=== PATIENT | female | born 1975 | race Caucasian/White ===

== ENCOUNTER 2021-01-06 10:28 | Emergency (ER) | payer BC, OTHER ==
[~2021-01-06] VITALS: Ht 162 cm; Wt 150.0 kg
[2021-01-06] MEDS ORDERED: RX-ALBUTEROL INHALER (VENTOLIN HFA) 8.5 GM IH STA (11:02)
[2021-01-06 11:04] VITALS: BP 166/108
--- NOTE | 2021-01-06 11:14 | ED General ---
General Chief Complaint: Respiratory Problems Stated Complaint: FEVER; VOMITING; SOB O2 87 Source of Information: Patient History of Present Illness Date Seen by Provider: Jan 06, 2021 Time Seen by Provider: 10:31 Initial Comments 45-year-old female presenting with complaints of increased shortness of breath, fever, body aches, cough. She has been exposed to her who was diagnosed with COVID-19 infection on Saturday. She started having symptoms on Saturday night. She does have a history of asthma, hypertension, GERD, prediabetes. She reports having increased cough and shortness of breath and a single episode of vomiting yellow "bile" this morning. She had tried checking her oxygen level at home and states that it was 79%. However this was around the time that she had a fever and she did not do anything other than take Tylenol at that time. She does have albuterol rescue inhalers but has not been using it. She has kept down the 1,000 mg of Acetaminophen she took this am for her fever. She was nervous and worried about her symptoms and not feeling well so her drove her to the ED. She has only lived in [place] for about a month as she just moved here from [place]. She does not have a local provider locally. Timing/Duration: 2-3 Days Severity: Severe Modifying Factors: worse with Movement Associated Systoms: No Chest Pain; Cough; No Diaphoresis; Fever/Chills, Loss of Appetite, Malaise, Nausea/Vomiting (single episode of vomiting this am); No Rash, No Seizure; Shortness of Air; No Syncope; Weakness (general) Allergies and Home Medications Allergies Coded Allergies: torsemide (Verified Allergy, Unknown, Rash, 01/06/21) Home Medications Albuterol Sulfate 18 Gm Hfa.aer.ad, 2 PUFF INH Q4H PRN for SHORTNESS OF BREATH, (Reported) Last Action: New Order Albuterol Sulfate 2.5 Mg/3 Ml Vial.neb, 2.5 MG INH Q4H PRN for WHEEZING Prescribed by: ROSALIND SILVERMAN on 01/06/21 1231 Azithromycin 500 Mg Tablet, 500 MG PO DAILY Prescribed by: ROSALIND SILVERMAN on 01/06/21 1231 Gemfibrozil 600 Mg Tablet, 600 MG PO BID, (Reported) Last Action: New Order Lisinopril/Hydrochlorothiazide 1 Each Tablet, 1 TAB PO DAILY, (Reported) Last Action: New Order Mometasone/Formoterol 13 Gm Hfa.aer.ad, 2 PUFF INH BID, (Reported) Last Action: New Order Montelukast Sodium 10 Mg Tablet, 10 MG PO DAILY, (Reported) Last Action: New Order Pantoprazole Sodium 40 Mg Tablet.dr, 40 MG PO DAILY, (Reported) Last Action: New Order Paroxetine HCl 30 Mg Tablet, 60 MG PO DAILY, (Reported) Last Action: New Order Prednisone 20 Mg Tab, 40 MG PO DAILY Prescribed by: ROSALIND SILVERMAN on 01/06/21 1231 Propranolol HCl 40 Mg Tablet, 40 MG PO BID, (Reported) Last Action: New Order Quetiapine Fumarate 50 Mg Tablet, 50 MG PO DAILY, (Reported) Last Action: New Order Patient Home Medication List Home Medication List Reviewed: Yes Review of Systems Review of Systems Constitutional: chills, fever, malaise EENTM: nose congestion Respiratory: cough, dyspnea on exertion; No hemoptysis; phlegm, short of breath; No stridor; wheezing Cardiovascular: No chest pain Gastrointestinal: see HPI Genitourinary: no symptoms reported Musculoskeletal: other (generalized body aches) Skin: No rash Psychiatric/Neurological: Anxiety Immunological/Allergic: grass allergy, pollen allergy Past Czbojud-Zwrswi-Ckazie Hx Patient Social History Tobacco Use?: No Use of E-Cig and/or Vaping dev: No Substance use?: No Alcohol Use?: No Pt feels they are or have been: No Past Medical History Surgery/Hospitalization HX: Asthma, Depression, Hypertension, Pre-Diabetes, Obesity Surgeries: Yes Gallbladder, Hysterectomy Respiratory: Yes Asthma Cardiac: Yes High Cholesterol, Hypertension 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 oz. kg; BMI Method: General Appearance: Anxious, Obese HEENT: PERRL/EOMI, Pharynx Normal Neck: Full Range of Motion, Normal Inspection, Non Tender, Supple Respiratory: Chest Non Tender, Lungs Clear, Normal Breath Sounds Cardiovascular: Normal Peripheral Pulses, Tachycardia Gastrointestinal: Normal Bowel Sounds, No Pulsatile Mass, Non Tender, Soft Rectal: Deferred Extremity: Normal Capillary Refill, Normal Inspection, Normal Range of Motion, No Pedal Edema Neurologic/Psychiatric: Alert, Oriented x3, drafter (cad) electronic II-XII Norm as Tested Skin: Normal Color, Warm/Dry Focused Exam Lactate Level 01/06/21 11:00: Lactic Acid Level 1.33 Lactic Acid Level Laboratory Tests Test 01/06/21 11:00 Lactic Acid Level 1.33 MMOL/L (0.50-2.00) Progress/Results/Core Measures Suspected Sepsis SIRS Temperature: Pulse: Respiratory Rate: Laboratory Tests 01/06/21 11:00: White Blood Count 5.3 Blood Pressure / Mean: 01/06/21 11:00: Lactic Acid Level 1.33 Laboratory Tests 01/06/21 11:00: Creatinine 0.73, INR Comment 1.0, Platelet Count 216, Total Bilirubin 0.3 Results/Orders Lab Results Laboratory Tests Test 01/06/21 11:00 01/06/21 11:05 Range/Units White Blood Count 5.3 4.3-11.0 10^3/uL Red Blood Count 4.03 L 4.35-5.85 10^6/uL Hemoglobin 11.2 L 11.5-16.0 G/DL Hematocrit 34 L 35-52 % Mean Corpuscular Volume 85 80-99 FL Mean Corpuscular Hemoglobin 28 25-34 PG Mean Corpuscular Hemoglobin Concent 33 32-36 G/DL Red Cell Distribution Width 14.0 10.0-14.5 % Platelet Count 216 130-400 10^3/uL Mean Platelet Volume 10.0 7.4-10.4 FL Immature Granulocyte % (Auto) 0 % Neutrophils (%) (Auto) 79 H 42-75 % Lymphocytes (%) (Auto) 11 L 12-44 % Monocytes (%) (Auto) 10 0-12 % Eosinophils (%) (Auto) 0 0-10 % Basophils (%) (Auto) 0 0-10 % Neutrophils # (Auto) 4.2 1.8-7.8 X 10^3 Lymphocytes # (Auto) 0.6 L 1.0-4.0 X 10^3 Monocytes # (Auto) 0.5 0.0-1.0 X 10^3 Eosinophils # (Auto) 0.0 0.0-0.3 10^3/uL Basophils # (Auto) 0.0 0.0-0.1 10^3/uL Immature Granulocyte # (Auto) 0.0 0.0-0.1 10^3/uL Prothrombin Time 13.8 12.2-14.7 SEC INR Comment 1.0 0.8-1.4 Activated Partial Thromboplast Time 31 24-35 SEC Sodium Level 137 135-145 MMOL/L Potassium Level 3.9 3.6-5.0 MMOL/L Chloride Level 100 98-107 MMOL/L Carbon Dioxide Level 26 21-32 MMOL/L Anion Gap 11 5-14 MMOL/L Blood Urea Nitrogen 13 7-18 MG/DL Creatinine 0.73 0.60-1.30 MG/DL Estimat Glomerular Filtration Rate 87 BUN/Creatinine Ratio 18 Glucose Level 112 H 70-105 MG/DL Lactic Acid Level 1.33 0.50-2.00 MMOL/L Calcium Level 9.1 8.5-10.1 MG/DL Corrected Calcium 9.0 8.5-10.1 MG/DL Total Bilirubin 0.3 0.1-1.0 MG/DL Aspartate Amino Transf (AST/SGOT) 26 5-34 U/L Alanine Aminotransferase (ALT/SGPT) 30 0-55 U/L Alkaline Phosphatase 90 40-136 U/L Troponin I < 0.30 <0.30 NG/ML C-Reactive Protein 1.05 H <0.50 MG/DL Total Protein 7.4 6.4-8.2 GM/DL Albumin 4.1 3.2-4.5 GM/DL SARS-CoV-2 RNA (RT-PCR) Detected H Not Detecte Micro Results Microbiology 01/06/21 Influenza Types A,B Antigen (CRIS) - Final, Complete My Orders Orders - ROSALIND SILVERMAN MD Monitor-Rhythm Ecg Trace Only (01/06/21 11:02) Cbc With Automated Diff (01/06/21 11:02) Comprehensive Metabolic Panel (01/06/21 11:02) Crp Fs (01/06/21 11:02) Troponin I Fs (01/06/21 11:02) Protime With Inr (01/06/21 11:02) Partial Thromboplastin Time (01/06/21 11:02) Ekg Tracing (01/06/21 11:02) Ns Iv 1000 Ml (Sodium Chloride 0.9%) (01/06/21 11:15) Dexamethasone Injection (Decadron Inje (01/06/21 11:02) Rx-Albuterol Inhaler (Rx-Ventolin Hfa) (01/06/21 11:02) Blood Culture (01/06/21 11:04) Lactic Acid Analyzer (01/06/21 11:04) Chest 1 View Ap/Pa Only (01/06/21 11:04) Influenza A And B Antigens (01/06/21 11:04) Ed Iv/Invasive Line Start (01/06/21 11:07) Covid 19 Inhouse Test (01/06/21 11:25) Ketorolac Injection (Toradol Injection) (01/06/21 11:57) Acetaminophen Tablet/Caplet (Tylenol T (01/06/21 11:57) Vital Signs/I&O 01/06/21 01/06/21 11:00 11:04 Temp 37.1 35.9 Pulse 102 115 Resp 16 24 B/P (MAP) 132/72 166/108 (127) Pulse Ox 98 97 O2 Delivery Room Air Room Air Capillary Refill : Progress Note #1: Progress Note check lab, blood cultures with lactic acid, Influenza and Covid swabs, CXR. Give IVF for hydration. UA to check for infection and see about hydration by looking at how concentrated it is. Progress Note #2: Progress Note Labs shows no acute significant abnormality on her CBC. Her lactic acid is normal at 1.3. Her chemistry panel shows elevated CRP consistent with Covid infection but otherwise she has no acute significant normality. She does have a mild elevation of her glucose. Her chest x-ray shows no acute process. Patient reports she was feeling better when reviewing results with her. She has received IV fluids, steroids, albuterol inhaler with spacer. We will continue steroids as well as a Z-Koby at home. Encouraged to use medications for asthma. Counseled on follow-up and return precautions. Advised that influenza was negative but Covid was pending. However considering she had close contact with her who was positive she likely is positive as well. ECG Initial ECG Impression Date: Jan 06, 2021 Initial ECG Impression Time: 11:07 Initial ECG Rate: 109 Initial ECG Rhythm: S.Tach Initial ECG Comparisson: No Previous ECG Available Comment Sinus tachycardia with a heart rate of 109 bpm. FL interval 143 ms. QT interval 350 ms with a QTc interval 472 ms. There is no acute ST elevation. Th ere is no prior tracing available for comparison. Diagnostic Imaging Diagonstic Imaging: Xray Plain Films/CT/US/NM/MRI: chest Comments [facility], [place] NAME: [facility] REC#: [id number] PT STATUS: REG ER : 1975 PHYSICIAN: ROSALIND SILVERMAN MD ADMIT DATE: 01/06/21/ER FS Draft Date of Exam:01/06/21 CHEST 1 VIEW AP/PA ONLY INDICATION: Cough, dyspnea COMPARISON: 07/21/2013 FINDINGS: The lungs are clear. There is no failure, effusion or pneumothorax. IMPRESSION: No acute appearing abnormality. Dictated on workstation # [id number] Dict: 01/06/21 1121 Trans: 01/06/21 1130 [facility] [id number] Interpreted by: ARA LAL Electronically signed by: Reviewed: Reviewed by Me Departure Impression Primary Impression: Close exposure to COVID-19 virus Additional Impressions: Shortness of breath Acute viral syndrome Disposition: 01 HOME, SELF-CARE Condition: Improved Departure-Patient Inst. Decision time for Depature: 12:32 Referrals: NO,LOCAL PHYSICIAN (PCP) Primary Care Physician [facility] Patient Instructions: COVID-19 ED, COVID-19 Overview, How to Use Your Metered Dose Inhaler (Adults), How to Use a Spacer, Recovery After COVID-19 Add. Discharge Instructions: Quarantine and stay isolated to avoid exposure to others for at least next 10 days Use the steroid to help with asthma and shortness of breath. Use albuterol inhaler with spacer and your nebulizer treatments as needed to help with shortness of breath/wheezing. Take the Zithromax antibiotic to help in case there is an atypical bacterial infection. Call [facility] clinic at [phone] to see about establishing care with the clinic. Take plain Mucinex to help with loosening congestion and cough. Make sure to keep drinking plenty of water to help this work and to stay hydrated Take Vitamin C to help your body fight off infection as well. All discharge instructions reviewed with patient and/or family. Voiced understanding. Scripts Albuterol Sulfate (Albuterol Sulfate) 2.5 Mg/3 Ml Vial.neb 2.5 MG INH Q4H PRN for WHEEZING for 15 Days, #75 ML 1 Refill Prov: ROSALIND SILVERMAN MD 01/06/21 Azithromycin (Azithromycin) 500 Mg Tablet 500 MG PO DAILY for 5 Days, #5 TAB 0 Refills Prov: ROSALIND SILVERMAN MD 01/06/21 Prednisone (Prednisone) 20 Mg Tab 40 MG PO DAILY for Shortness of Breath for 5 Days, #10 TAB 0 Refills Prov: ROSALIND SILVERMAN MD 01/06/21 ROSALIND SILVERMAN MD Jan 06, 2021 11:14
[2021-01-06] MEDS ORDERED: NS IV 1000 ML 1,000 ML IV SCH (11:15)
[2021-01-06 11:19] LABS: HEMATOCRIT 34 % (35-52); HEMOGLOBIN 11.2 G/DL (11.5-16.0); MEAN CORPUSCULAR HEMOGLOBIN 28 PG (25-34); WHITE BLOOD COUNT 5.3 10^3/uL (4.3-11.0)
[2021-01-06 11:20] LABS: BASOPHILS % (AUTO) 0 % (0-10); EOSINOPHILS % (AUTO) 0 % (0-10); LYMPHOCYTES # (AUTO) 0.6 X 10^3 (1.0-4.0); LYMPHOCYTES % (AUTO) 11 % (12-44); MEAN CORPUSCULAR HGB CONC 33 G/DL (32-36); MEAN CORPUSCULAR VOLUME 85 FL (80-99); MONOCYTES # (AUTO) 0.5 X 10^3 (0.0-1.0); MONOCYTES % (AUTO) 10 % (0-12); NEUTROPHILS # (AUTO) 4.2 X 10^3 (1.8-7.8); NEUTROPHILS % (AUTO) 79 % (42-75); PLATELET COUNT 216 10^3/uL (130-400)
[2021-01-06] MEDS ORDERED: LISI1TAB26 PO (11:24)
[2021-01-06] MEDS ORDERED: MONT10TA32 PO (11:24)
[2021-01-06] MEDS ORDERED: GEMF600T88 PO (11:24)
[2021-01-06] MEDS ORDERED: MOME13HF INH (11:24)
[2021-01-06] MEDS ORDERED: PANT40TA52 PO (11:24)
[2021-01-06] MEDS ORDERED: PARO30TA3 PO (11:24)
[2021-01-06] MEDS ORDERED: PROP40TA5 PO (11:24)
[2021-01-06] MEDS ORDERED: ALBU18HF2 INH (11:24)
[2021-01-06] MEDS ORDERED: QUET50TA22 PO (11:24)
--- NOTE | 2021-01-06 11:31 | Diagnostic Imaging Report ---
INDICATION: Cough, dyspnea COMPARISON: 07/21/2013 FINDINGS: The lungs are clear. There is no failure, effusion or pneumothorax. IMPRESSION: No acute appearing abnormality. Dictated by: Dictated on workstation # [id number]
[2021-01-06 11:37] LABS: PROTHROMBIN TIME PATIENT 13.8 SEC (12.2-14.7)
[2021-01-06 11:41] LABS: ALKALINE PHOSPHATASE 90 U/L (40-136); BILIRUBIN,TOTAL 0.3 MG/DL (0.1-1.0); BUN/CREATININE RATIO 18; CALCIUM 9.1 MG/DL (8.5-10.1); CARBON DIOXIDE 26 MMOL/L (21-32); CHLORIDE 100 MMOL/L (98-107); CREATININE SERUM 0.73 MG/DL (0.60-1.30); GFR ESTIMATED 87; GLUCOSE 112 MG/DL (70-105); POTASSIUM 3.9 MMOL/L (3.6-5.0); SODIUM 137 MMOL/L (135-145)
[2021-01-06 11:42] LABS: ALANINE AMINOTRANSFERASE 30 U/L (0-55); ALBUMIN 4.1 GM/DL (3.2-4.5); TOTAL PROTEIN 7.4 GM/DL (6.4-8.2)
[2021-01-06] MEDS ORDERED: ACETAMINOPHEN 325 MG TABLET PO STA (11:57)
[2021-01-06] MEDS ORDERED: KETOROLAC 30 MG/ML VIAL IVP STA (11:57)
[2021-01-06] MEDS ORDERED: ALBU2.5V4 INH (12:31)
[2021-01-06] MEDS ORDERED: AZIT500T9 PO (12:31)
[2021-01-06] MEDS ORDERED: PRD20T PO (12:31)
== END 2021-01-06 12:45 | disposition home or self-care (01) ==
LOC: ER FS 10:32
DX: U07.1 COVID-19 (principal); I10 Essential (primary) hypertension; E78.00 Pure hypercholesterolemia, unspecified; F41.9 Anxiety disorder, unspecified; F32.9 Major depressive disorder, single episode, unspecified; K21.9 Gastro-esophageal reflux disease without esophagitis; E66.9 Obesity, unspecified; Z79.899 Other long term (current) drug therapy
CPT/HCPCS: 36415; 71045; 80053; 83605; 84484; 85025; 85610; 85730; 86141; 87040; 87636; 87804; 93005; 93041

== ENCOUNTER 2021-01-08 14:12 | Inpatient (IN) | payer SELFPAY ==
[~2021-01-08] VITALS: Ht 162.5 cm; Wt 171.5 kg
[~2021-01-08 14:12] MED LIST: ALBU18HF2 INH; ALBU2.5V4 INH; AZIT500T9 PO; GEMF600T88 PO; LISI1TAB26 PO; MOME13HF INH; MONT10TA32 PO; PANT40TA52 PO; PARO30TA3 PO; PRD20T PO; PROP40TA5 PO; QUET50TA22 PO
[2021-01-08] MEDS ORDERED: LORazepam INJ 2 MG/ML (ATIVAN) VIAL IVP STA (14:36)
[2021-01-08] MEDS ORDERED: ONDANSETRON 4 MG/2 ML (SDV) Z0FRAN IV ONE (14:45)
[2021-01-08] MEDS ORDERED: NS 100 ML (IVPB) BAG IV ONE (14:45)
[2021-01-08] MEDS ORDERED: CATHETER FLUSH 10 ML SYR IV PRN (14:45)
[2021-01-08] MEDS ORDERED: HOLD METFORMIN - RECEIVED CONTRAST 20 ML VIAL IV SCH (14:45)
[2021-01-08] MEDS ORDERED: NS IV 1000 ML 1,000 ML IV SCH (14:45)
[2021-01-08] MEDS ORDERED: IOHEXOL 350 MG/ML 150 ML (OMNIPAQUE 350) VIAL IV ONE (14:45)
[2021-01-08] MEDS ORDERED: ACETAMINOPHEN 325 MG TABLET PO ONE (14:45)
--- NOTE | 2021-01-08 14:45 | ED General ---
General Chief Complaint: Respiratory Problems Stated Complaint: LOW O2; COVID+ Source of Information: Patient, Old Records History of Present Illness Date Seen by Provider: Jan 08, 2021 Time Seen by Provider: 14:12 Initial Comments 45 yo female presenting with worsening shortness of breath and fever since being seen on Saturday. She was diagnosed with Covid from a swab done on January 06. She has been around her to tested positive earlier in the week. She started feeling bad on night. She does have a history of asthma but has not routinely been using medication. She moved here 1 month ago from [facility]. She had done a pulse ox at home that was reading in the 70s. She states that she had 102.9 fever just prior to arrival in the ED. She did not take any medicine for that and it was 101.2 F tympanic on our testing. She appears very anxious and is hyperventilating with shallow breaths Timing/Duration: 3-4 Days Severity: Severe Modifying Factors: worse with Movement Associated Systoms: Chest Pain (tightness), Cough, Diaphoresis, Fever/Chills, Headaches, Loss of Appetite, Malaise, Nausea/Vomiting; No Seizure; Shortness of Air; No Syncope; Weakness Allergies and Home Medications Allergies Coded Allergies: torsemide (Verified Allergy, Unknown, Rash, 01/06/21) Home Medications Albuterol Sulfate 18 Gm Hfa.aer.ad, 2 PUFF INH Q4H PRN for SHORTNESS OF BREATH, (Reported) Albuterol Sulfate 2.5 Mg/3 Ml Vial.neb, 2.5 MG INH Q4H PRN for WHEEZING Prescribed by: ROSALIND SILVERMAN on 01/06/21 1231 Azithromycin 500 Mg Tablet, 500 MG PO DAILY Prescribed by: ROSALIND SILVERMAN on 01/06/21 1231 Gemfibrozil 600 Mg Tablet, 600 MG PO BID, (Reported) Lisinopril/Hydrochlorothiazide 1 Each Tablet, 1 TAB PO DAILY, (Reported) Mometasone/Formoterol 13 Gm Hfa.aer.ad, 2 PUFF INH BID, (Reported) Montelukast Sodium 10 Mg Tablet, 10 MG PO DAILY, (Reported) Pantoprazole Sodium 40 Mg Tablet.dr, 40 MG PO DAILY, (Reported) Paroxetine HCl 30 Mg Tablet, 60 MG PO DAILY, (Reported) Prednisone 20 Mg Tab, 40 MG PO DAILY Prescribed by: ROSALIND SILVERMAN on 01/06/21 1231 Propranolol HCl 40 Mg Tablet, 40 MG PO BID, (Reported) Quetiapine Fumarate 50 Mg Tablet, 50 MG PO DAILY, (Reported) Patient Home Medication List Home Medication List Reviewed: Yes Review of Systems Review of Systems Constitutional: see HPI EENTM: nose congestion Respiratory: see HPI Cardiovascular: see HPI Gastrointestinal: see HPI Genitourinary: decreased output Musculoskeletal: other (generalized muscle aches and pain) Skin: No rash Psychiatric/Neurological: Anxiety, Headache, Weakness (general) Hematologic/Lymphatic: Denies Blood Clots Immunological/Allergic: grass allergy, pollen allergy Past Nowdbcw-Jeyspd-Urxmdt Hx Patient Social History Tobacco Use?: No Past Medical History Surgery/Hospitalization HX: Asthma, Depression, Hypertension, Pre-Diabetes, Obesity Surgeries: Yes Gallbladder, Hysterectomy Respiratory: Yes Asthma Cardiac: Yes High Cholesterol, Hypertension 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 oz. kg; 57.00 BMI Method: General Appearance: Anxious, Moderate Distress, Obese HEENT: PERRL/EOMI, Pharynx Normal Neck: Full Range of Motion, Normal Inspection, Non Tender, Supple Respiratory: Chest Non Tender, Accessory Muscle Use, Decreased Breath Sounds, Respiratory Distress Cardiovascular: Normal Peripheral Pulses, Tachycardia Gastrointestinal: Normal Bowel Sounds, No Pulsatile Mass, Non Tender, Soft Rectal: Deferred Extremity: Normal Capillary Refill, Normal Inspection, No Pedal Edema Neurologic/Psychiatric: Alert, Oriented x3 Skin: Normal Color, Warm/Dry Focused Exam Lactate Level 01/08/21 14:49: Lactic Acid Level 1.08 Lactic Acid Level Laboratory Tests Test 01/08/21 14:49 Lactic Acid Level 1.08 MMOL/L (0.50-2.00) Progress/Results/Core Measures Suspected Sepsis SIRS Temperature: Pulse: Respiratory Rate: Laboratory Tests 01/08/21 14:49: White Blood Count 8.3 Blood Pressure / Mean: 01/08/21 14:49: Lactic Acid Level 1.08 Laboratory Tests 01/08/21 14:49: Creatinine 0.81, INR Comment 0.9, Platelet Count 229, Total Bilirubin 0.4 Results/Orders Lab Results Laboratory Tests Test 01/08/21 14:49 01/08/21 15:04 Range/Units White Blood Count 8.3 4.3-11.0 10^3/uL Red Blood Count 3.95 L 4.35-5.85 10^6/uL Hemoglobin 11.0 L 11.5-16.0 G/DL Hematocrit 34 L 35-52 % Mean Corpuscular Volume 87 80-99 FL Mean Corpuscular Hemoglobin 28 25-34 PG Mean Corpuscular Hemoglobin Concent 32 32-36 G/DL Red Cell Distribution Width 14.6 H 10.0-14.5 % Platelet Count 229 130-400 10^3/uL Mean Platelet Volume 10.4 7.4-10.4 FL Immature Granulocyte % (Auto) 0 % Neutrophils (%) (Auto) 83 H 42-75 % Lymphocytes (%) (Auto) 11 L 12-44 % Monocytes (%) (Auto) 5 0-12 % Eosinophils (%) (Auto) 0 0-10 % Basophils (%) (Auto) 0 0-10 % Neutrophils # (Auto) 6.9 1.8-7.8 X 10^3 Lymphocytes # (Auto) 0.9 L 1.0-4.0 X 10^3 Monocytes # (Auto) 0.4 0.0-1.0 X 10^3 Eosinophils # (Auto) 0.0 0.0-0.3 10^3/uL Basophils # (Auto) 0.0 0.0-0.1 10^3/uL Immature Granulocyte # (Auto) 0.0 0.0-0.1 10^3/uL Prothrombin Time 12.8 12.2-14.7 SEC INR Comment 0.9 0.8-1.4 Activated Partial Thromboplast Time 34 24-35 SEC Sodium Level 141 135-145 MMOL/L Potassium Level 3.9 3.6-5.0 MMOL/L Chloride Level 102 98-107 MMOL/L Carbon Dioxide Level 27 21-32 MMOL/L Anion Gap 12 5-14 MMOL/L Blood Urea Nitrogen 23 H 7-18 MG/DL Creatinine 0.81 0.60-1.30 MG/DL Estimat Glomerular Filtration Rate 77 BUN/Creatinine Ratio 28 Glucose Level 98 70-105 MG/DL Lactic Acid Level 1.08 0.50-2.00 MMOL/L Calcium Level 8.9 8.5-10.1 MG/DL Corrected Calcium 8.9 8.5-10.1 MG/DL Total Bilirubin 0.4 0.1-1.0 MG/DL Aspartate Amino Transf (AST/SGOT) 28 5-34 U/L Alanine Aminotransferase (ALT/SGPT) 29 0-55 U/L Alkaline Phosphatase 84 40-136 U/L Troponin I < 0.30 <0.30 NG/ML C-Reactive Protein 1.53 H <0.50 MG/DL Pro-B-Type Natriuretic Peptide 171.2 H <75.0 PG/ML Total Protein 7.5 6.4-8.2 GM/DL Albumin 4.0 3.2-4.5 GM/DL Blood Gas Puncture Site UNKNOWN Blood Gas Patient Temperature 101.2 Arterial Blood pH 7.52 H 7.37-7.43 Arterial Blood Partial Pressure CO2 39 35-45 MMHG Arterial Blood Partial Pressure O2 57 L 79-93 MMHG Arterial Blood HCO3 32 H 23-27 MMOL/L Arterial Blood Total CO2 33.0 H 21.0-31.0 MMOL/L Arterial Blood Oxygen Saturation 92 L 94-100 % Arterial Blood Base Excess 8.3 H -2.5-2.5 MMOL/L Mohamud Test NEGATIVE Blood Gas Ventilator Setting NO Blood Gas Inspired Oxygen 4 My Orders Orders - ROSALIND SILVERMAN MD Monitor-Rhythm Ecg Trace Only (01/08/21 14:36) Ed Iv/Invasive Line Start (01/08/21 14:36) Cbc With Automated Diff (01/08/21 14:36) Comprehensive Metabolic Panel (01/08/21 14:36) Crp Fs (01/08/21 14:36) Troponin I Fs (01/08/21 14:36) Protime With Inr (01/08/21 14:36) Partial Thromboplastin Time (01/08/21 14:36) Ekg Tracing (01/08/21 14:36) Arterial Blood Gas (01/08/21 14:36) Ns Iv 1000 Ml (Sodium Chloride 0.9%) (01/08/21 14:45) Acetaminophen Tablet/Caplet (Tylenol T (01/08/21 14:45) Ondansetron Injection (Zofran Injectio (01/08/21 14:45) Ct Angio Chest W (01/08/21 14:36) Probnp Fs (01/08/21 14:36) O2 (01/08/21 14:36) Lorazepam Injection (Ativan Injection) (01/08/21 14:36) Blood Culture (01/08/21 14:42) Lactic Acid Analyzer (01/08/21 14:42) Iohexol Injection (Omnipaque 350 Mg/Ml 1 (01/08/21 14:45) Received Contrast (Hold Metformin- Contr (01/08/21 14:45) Sodium Chloride Flush (Catheter Flush Sy (01/08/21 14:45) Ns (Ivpb) (Sodium Chloride 0.9% Ivpb Bag (01/08/21 14:45) Lorazepam Injection (Ativan Injection) (01/08/21 16:43) Medications Given in ED Current Medications Medications Dose Ordered Sig/Fidelia Route Start Time Stop Time Status Last Admin Dose Admin Acetaminophen 650 mg ONCE ONCE PO 01/08/21 14:45 01/08/21 14:46 DC 01/08/21 16:50 650 MG Iohexol 125 ml ONCE ONCE IV 01/08/21 14:45 01/08/21 14:46 DC 01/08/21 15:38 125 ML Ondansetron HCl 4 mg ONCE ONCE IV 01/08/21 14:45 01/08/21 14:46 DC 01/08/21 16:49 4 MG Sodium Chloride 10 ml NEEDED PRN IV 01/08/21 14:45 01/08/21 15:38 10 ML Sodium Chloride 100 ml ONCE ONCE IV 01/08/21 14:45 01/08/21 14:46 DC 01/08/21 15:38 100 ML Vital Signs/I&O 01/08/21 01/08/21 14:30 14:30 Temp 38.4 Pulse 114 Resp 26 B/P (MAP) 151/98 (115) Pulse Ox 95 95 O2 Delivery Nasal Cannula Nasal Cannula O2 Flow Rate 3.00 3.00 Capillary Refill : Progress Note #1: Progress Note With her hypoxia of O2 sat in the 70s on arrival will place on supplemental oxygen and obtain ABG as well as labs. Since she was having more trouble breathing will order a CT angiogram to rule out pulmonary embolism or worsening Covid symptoms. Give IV fluids for hydration, Ativan to help with anxiety, O2 to help with oxygen. Progress Note #2: Progress Note Labs show stable CBC without elevated white blood cell count. Her chemistry does not show an elevated lactic acid. Her troponin is still 0. Her creatinine looks good at 0.81. Her CRP is elevated. Her blood gas shows alkalosis with elevated pH likely due to her hyperventilating. She does have a low PO2 but only 4 L of supplemental oxygen is 92 to 93%. Discussed with Dr. Stone will admit for Covid and shortness of breath with hypoxia. If her CT scan does show pulmonary embolism or other signs of infection we will treat that and address that as well. Progress Note #3: Progress Note CT angiogram did not demonstrate any pulmonary embolism. Radiology read as moderate amount of COVID-19 findings. Proceed with admission for supplemental oxygen, IV fluids, treatment for Covid. Progress Note #4: Time: 19:11 Progress Note EMS arrived to transport pt to [facility]. She remains stable and O2 sat stays up on n.c. and was able to be weaned to 3 Lpm. ECG Initial ECG Impression Date: Jan 08, 2021 Initial ECG Impression Time: 14:51 Initial ECG Rate: 112 Initial ECG Rhythm: S.Tach Initial ECG Comparisson: Unchanged Comment Sinus tachycardia with heart rate 112 bpm. ME interval [address] elevation. QT interval 331 ms with a QTc interval 452 ms. Appears stable from prior tracing. Diagnostic Imaging Diagonstic Imaging: CT Plain Films/CT/US/NM/MRI: chest Comments NAME: [facility] REC#: [id number] PT STATUS: REG ER : 1975 PHYSICIAN: ROSALIND SILVERMAN MD ADMIT DATE: 01/08/21/ER FS Draft Date of Exam:01/08/21 CT ANGIO CHEST W EXAMINATION: CT angiography of the chest. TECHNIQUE: Contrast enhanced thin section helical images were obtained through the chest with intravenous contrast timed for the optimal opacification of the arterial structures per CTA protocol. Post-processing, reconstructions and interpretation of angiographic images of the vessels was performed. 3D MIP reconstructions were performed and reviewed. All CT scans use one or more of the following dose optimizing techniques: automated exposure control, MA and/or KvP adjustment based on patient size and exam type or iterative reconstruction. HISTORY: Hypoxia, Covid-19. COMPARISON: None available. FINDINGS: Study quality is diminished by body habitus. No pulmonary embolism is seen. There is moderate Covid-19 pneumonia. No pleural effusion. No pneumothorax. There is no axillary or supraclavicular lymphadenopathy. There is no mediastinal lymphadenopathy. Heart size is normal. There are no coronary artery calcifications. No pericardial effusion. Aorta is normal in caliber. Limited views of the upper abdomen are unremarkable. There are no suspicious osseus lesions. IMPRESSION: 1. No pulmonary embolism. 2. Moderate Covid-19 pneumonia. Dictated on workstation # [id number] Dict: 01/08/21 1549 Trans: 01/08/21 1555 [facility] [id number] Interpreted by: JUAN ANTONIO COMER MD Electronically signed by: Departure Communication (Admissions) Time/Spoke to Admitting Phy: 15:43 d/w Dr. Stone for admit and she accepted pt for floor bed since she was maintaining O2 sats above 90% on [address] scan and if shows PE will order medicine for treatment of that as well. Impression Primary Impression: Respiratory tract infection due to 2019 novel coronavirus Additional Impressions: Hypoxia Anxiety Disposition: 30 STILL A PATIENT Condition: Stable Admissions Decision to Admit Reason: Admit from ER (General) Decision to Admit/Date: Jan 08, 2021 Time/Decision to Admit Time: 15:43 Departure-Patient Inst. Referrals: NO,LOCAL PHYSICIAN (PCP/Family) Primary Care Physician ROSALIND SILVERMAN MD Jan 08, 2021 14:45
[2021-01-08 14:53] LABS: HEMATOCRIT 34 % (35-52); MEAN CORPUSCULAR HEMOGLOBIN 28 PG (25-34); MEAN CORPUSCULAR HGB CONC 32 G/DL (32-36); MEAN CORPUSCULAR VOLUME 87 FL (80-99); WHITE BLOOD COUNT 8.3 10^3/uL (4.3-11.0)
[2021-01-08 14:54] LABS: BASOPHILS % (AUTO) 0 % (0-10); EOSINOPHILS % (AUTO) 0 % (0-10); LYMPHOCYTES # (AUTO) 0.9 X 10^3 (1.0-4.0); LYMPHOCYTES % (AUTO) 11 % (12-44); MEAN PLATELET VOLUME 10.4 FL (7.4-10.4); MONOCYTES # (AUTO) 0.4 X 10^3 (0.0-1.0); MONOCYTES % (AUTO) 5 % (0-12); NEUTROPHILS # (AUTO) 6.9 X 10^3 (1.8-7.8); NEUTROPHILS % (AUTO) 83 % (42-75); PLATELET COUNT 229 10^3/uL (130-400)
[2021-01-08 15:04] LABS: ABG PCO2 39 MMHG (35-45); ABG PH 7.52 (7.37-7.43)
[2021-01-08 15:05] LABS: ABG BASE EXCESS 8.3 MMOL/L (-2.5-2.5); ABG OXYGEN SATURATION 92 % (94-100); ABG PO2 57 MMHG (79-93); ALLENS TEST NEGATIVE; INSPIRED O2 4; PATIENT TEMP 101.2; VENTILATOR NO
[2021-01-08 15:09] LABS: INR 0.9 (0.8-1.4); PROTHROMBIN TIME PATIENT 12.8 SEC (12.2-14.7)
[2021-01-08 15:24] LABS: ALANINE AMINOTRANSFERASE 29 U/L (0-55); ALKALINE PHOSPHATASE 84 U/L (40-136); BILIRUBIN,TOTAL 0.4 MG/DL (0.1-1.0); BUN/CREATININE RATIO 28; CALCIUM 8.9 MG/DL (8.5-10.1); CARBON DIOXIDE 27 MMOL/L (21-32); CHLORIDE 102 MMOL/L (98-107); CREATININE SERUM 0.81 MG/DL (0.60-1.30); GFR ESTIMATED 77; GLUCOSE 98 MG/DL (70-105); POTASSIUM 3.9 MMOL/L (3.6-5.0); SODIUM 141 MMOL/L (135-145); TOTAL PROTEIN 7.5 GM/DL (6.4-8.2)
--- NOTE | 2021-01-08 15:56 | Diagnostic Imaging Report ---
EXAMINATION: CT angiography of the chest. TECHNIQUE: Contrast enhanced thin section helical images were obtained through the chest with intravenous contrast timed for the optimal opacification of the arterial structures per CTA protocol. Post-processing, reconstructions and interpretation of angiographic images of the vessels was performed. 3D MIP reconstructions were performed and reviewed. All CT scans use one or more of the following dose optimizing techniques: automated exposure control, MA and/or KvP adjustment based on patient size and exam type or iterative reconstruction. HISTORY: Hypoxia, Covid-19. COMPARISON: None available. FINDINGS: Study quality is diminished by body habitus. No pulmonary embolism is seen. There is moderate Covid-19 pneumonia. No pleural effusion. No pneumothorax. There is no axillary or supraclavicular lymphadenopathy. There is no mediastinal lymphadenopathy. Heart size is normal. There are no coronary artery calcifications. No pericardial effusion. Aorta is normal in caliber. Limited views of the upper abdomen are unremarkable. There are no suspicious osseus lesions. IMPRESSION: 1. No pulmonary embolism. 2. Moderate Covid-19 pneumonia. Dictated by: Dictated on workstation # [id number]
[2021-01-08] MEDS ORDERED: LORazepam INJ 2 MG/ML (ATIVAN) VIAL ONE (16:43)
[2021-01-08] MEDS ORDERED: ONDANSETRON 4 MG/2 ML (SDV) Z0FRAN IV PRN (20:30)
[2021-01-08] MEDS ORDERED: guaiFENesin SYRUP 100 MG/5 ML 10 ML (ROBITUSSIN SF) PO PRN (20:30)
[2021-01-08] MEDS ORDERED: LACTATED RINGERS 1,000 ML IV ONE (20:33)
[2021-01-08 20:39] VITALS: BP 137/82
[2021-01-08] MEDS ORDERED: RT-ALBUTEROL HFA 8.5 GM INHALER IH SCH (21:00)
[2021-01-08] MEDS ORDERED: ALBUTEROL/IPRATROP (COMBIVENT RESPIMAT) 4 GM INHALER INH SCH (21:00)
[2021-01-08] MEDS: LACTATED RINGERS 1,000 ML IV SCH (21:12)
[2021-01-08] MEDS: ENOXAPARIN 60 MG/0.6 ML (LOVENOX) SYR SC SCH (21:19)
[2021-01-08] MEDS: ACETAMINOPHEN 325 MG TABLET PO PRN (21:29)
[2021-01-08 23:30] VITALS: BP 126/82
[2021-01-09] VITALS (17 sets, daily range): BP systolic 98–164; BP diastolic 52–88
[2021-01-09] MEDS: ACETAMINOPHEN 325 MG TABLET PO PRN ×2 (03:14→11:33)
[2021-01-09 06:13] LABS: ALBUMIN 3.7 GM/DL (3.2-4.5); POTASSIUM 3.6 MMOL/L (3.6-5.0)
[2021-01-09 06:14] LABS: CALCIUM 8.7 MG/DL (8.5-10.1)
[2021-01-09 06:15] LABS: TOTAL PROTEIN 7.1 GM/DL (6.4-8.2)
[2021-01-09 06:17] LABS: BILIRUBIN,TOTAL 0.4 MG/DL (0.1-1.0)
[2021-01-09 06:19] LABS: CREATININE SERUM 0.83 MG/DL (0.60-1.30)
[2021-01-09] MEDS: RT-ALBUTEROL HFA 8.5 GM INHALER IH SCH ×5 (08:00→22:03)
[2021-01-09 08:23] LABS: BASOPHILS % (AUTO) 0 % (0-10); EOSINOPHILS % (AUTO) 0 % (0-10); HEMATOCRIT 34 % (35-52); HEMOGLOBIN 10.7 g/dL (11.5-16.0); LYMPHOCYTES # (AUTO) 1.1 10^3/uL (1.0-4.0); LYMPHOCYTES % (AUTO) 17 % (12-44); MEAN CORPUSCULAR HEMOGLOBIN 28 pg (25-34); MEAN CORPUSCULAR HGB CONC 31 g/dL (32-36); MEAN CORPUSCULAR VOLUME 89 fL (80-99); MEAN PLATELET VOLUME 10.7 fL (9.0-12.2); MONOCYTES # (AUTO) 0.3 10^3/uL (0.0-1.0); MONOCYTES % (AUTO) 5 % (0-12); NEUTROPHILS # (AUTO) 4.9 10^3/uL (1.8-7.8); NEUTROPHILS % (AUTO) 78 % (42-75); PLATELET COUNT 228 10^3/uL (130-400); WHITE BLOOD COUNT 6.3 10^3/uL (4.3-11.0)
[2021-01-09] MEDS ORDERED: TOCILIZUMAB INJECTION (NON-FOR 800 MG in NS (IVPB) 60 ML IV ONE (08:30)
[2021-01-09] MEDS ORDERED: dexAMETHasone 6 MG TAB (DECADRON) PO SCH (09:00)
[2021-01-09] MEDS: UMECLIDINIUM BROMIDE (INCRUSE ELLIPTA) 7'S IH SCH (09:56)
[2021-01-09] MEDS ORDERED: [UNRECOGNIZED DRUG - REMARK] IV NR (10:00)
[2021-01-09] MEDS: ENOXAPARIN 60 MG/0.6 ML (LOVENOX) SYR SC SCH ×2 (10:27→19:56)
--- NOTE | 2021-01-09 11:04 | Tele-ICU Consult ---
History of Present Illness History of Present Illness Date Seen by Provider: Jan 09, 2021 Time Seen by Provider: 09:31 Date of Admission Allergies and Home Medications Allergies Coded Allergies: torsemide (Verified Allergy, Unknown, Rash, 01/06/21) Home Medications Albuterol Sulfate 18 Gm Hfa.aer.ad, 2 PUFF INH Q4H PRN for SHORTNESS OF BREATH, (Reported) Albuterol Sulfate 2.5 Mg/3 Ml Vial.neb, 2.5 MG INH Q4H PRN for WHEEZING Prescribed by: ROSALIND SILVERMAN on 01/06/21 1231 Azithromycin 500 Mg Tablet, 500 MG PO DAILY Prescribed by: ROSALIND SILVERMAN on 01/06/21 1231 Gemfibrozil 600 Mg Tablet, 600 MG PO BID, (Reported) Lisinopril/Hydrochlorothiazide 1 Each Tablet, 1 TAB PO DAILY, (Reported) Mometasone/Formoterol 13 Gm Hfa.aer.ad, 2 PUFF INH BID, (Reported) Montelukast Sodium 10 Mg Tablet, 10 MG PO HS, (Reported) Pantoprazole Sodium 40 Mg Tablet.dr, 40 MG PO HS, (Reported) Paroxetine HCl 30 Mg Tablet, 60 MG PO DAILY, (Reported) Prednisone 20 Mg Tab, 40 MG PO DAILY Prescribed by: ROSALIND SILVERMAN on 01/06/21 1231 Propranolol HCl 40 Mg Tablet, 40 MG PO BID, (Reported) Quetiapine Fumarate 50 Mg Tablet, 50 MG PO HS, (Reported) Past Medical/Social/Family Hx Patient Social History Tobacco Use?: No Smoking Status: Never a Smoker Substance use?: No Alcohol Use?: No Pt stated abuse/neglect: No Immunizations Up To Date Influenza Vaccine Up-to-Date: No; Not Current Tetanus Booster (TDap): Less Than 5 Years Hepatitis A: No Hepatitis B: No Current Status status: No status: No Advance Directives: No Communicates: Verbally Primary Language: Russian Preferred Spoken Language: Russian Is interpretation needed?: No Sensory deficits: Vision impairment Review of Systems Constitutional: see HPI Sepsis Event Evaluation Height, Weight, BMI Height: '" Weight: lbs. oz. kg; 56.00 BMI Method: Exam Exam Patient acknowledged, consented, and participated in this virtual visit which was conducted using real time audio/video Vital Signs Date Time Temp Pulse Resp B/P (MAP) Pulse Ox O2 Delivery O2 Flow Rate FiO2 01/09/21 10:16 99 32 90 80.00 01/09/21 08:00 95 NIV Bilevel 65.00 01/09/21 07:00 102 01/09/21 06:45 91 Vapotherm 40.00 100.00 01/09/21 04:45 92 Vapotherm 30.00 90.00 01/09/21 03:27 38.0 98 20 146/83 (104) 89 Nasal Cannula 5.00 01/09/21 02:54 92 Nasal Cannula 5.50 01/09/21 01:00 96 01/08/21 23:30 37.2 97 20 126/82 (97) 91 Nasal Cannula 5.00 01/08/21 23:06 90 Nasal Cannula 6.00 01/08/21 22:46 Nasal Cannula 5.00 01/08/21 21:19 99 01/08/21 20:39 37.9 97 20 137/82 (100) 90 Nasal Cannula 4.00 01/08/21 19:20 37.0 100 25 120/98 93 Nasal Cannula 5.00 01/08/21 14:30 38.4 114 26 151/98 (115) 95 Nasal Cannula 3.00 01/08/21 14:30 95 Nasal Cannula 3.00 I & O 01/09/21 07:00 Intake Total 1400 ml Output Total 900 ml Balance 500 ml Height & Weight Height: '" Weight: lbs. oz. kg; 56.00 BMI Method: General Appearance: Anxious, Mild Distress, Moderate Distress, Obese HEENT: PERRL/EOMI, Pharynx Normal Neck: Full Range of Motion, Normal Inspection, Non Tender, Supple Respiratory: Chest Non Tender, Accessory Muscle Use, Decreased Breath Sounds, Respiratory Distress Cardiovascular: Normal Peripheral Pulses, Tachycardia Capillary Refill: Less Than 3 Seconds Extremity: Normal Capillary Refill, Normal Inspection, No Pedal Edema Neurologic/Psychiatric: Alert, Oriented x3 Skin: Normal Color, Warm/Dry Results Lab Laboratory Tests 01/08/21 14:49 01/09/21 05:50 Assessment/Plan Assessment/Plan (Tele-ICU Physician , consultation) Available chart/ vitals / labs / Images reviewed H&P is from ER notes Patient's information available about PMH, Shx, Fhx allergy reviewed in EMR. ROS as per chart and RN report Patient admitted 7/30 - dx with COVID , Tx with z -max 01/08 - admitted with hypoxia , CTA neg for PE , 3 L NC 01/09 - moved to ICU on Vapothem Now in ICU, hemodynamically stable Video assessment done using teleICU camera, rest of exam as per RN Discussed with RN. Consultants: A/P Acute hypoxic resp failure - on BIPAP18/10 , 70% rr 28, tv 500s MV 16L -prone position if able - prn vapothem for po intake - conservative fluid strategy (aim for even or negative fluid balance REVR-Trqyglingyw-4/COVID-19 infection- ( Dx 01/06 ) - NOT on Remdesivir - outside the Tx window - Actemra 01/09 -Steroids IV - will start with high dose today with asthma / bronchospma in mind - will re-eval tomorrow -Hypercoagulable state , DDIMER on 01/09 =0.6 -> lovenox ppx dose , follow D dimer ( no evidence of large PE on CT 01/08 ) monitor for superimposed bact PNA -PCT pending , OFF abx CT compatable with COVID Cx sputum H/o Asthma - cont br -dilators -IC steroid q 8h today "PRE- Diabetes Mellitus" 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 Discussed with RN to reach out if any questions or concerns Discussed with Dr Stone A total of 40 minutes of critical care time was devoted to this patient today, required to treat and/or prevent further deterioration of critical care condition ( as above ) CHAI RUFFIN MD Jan 09, 2021 11:04
[2021-01-09] MEDS: DexMEDEtomidine 250 ML DRIP 250 ML IV SCH ×2 (11:22→21:28)
[2021-01-09] MEDS: inSUlin ASPART (NovoLOG) 1 UNIT/0.01 ML (CHARGE PER UNIT) SC SCH ×3 (11:30→19:57)
--- NOTE | 2021-01-09 16:13 | History & Physical-Hospitalist ---
History of Present Illness HPI/Chief Complaint Ami Wong is a 45-year-old female with past medical history of asthma, hypertension, hyperlipidemia, GERD, super super obesity, who presented with shortness of breath. Upon my examination, she is wearing BiPAP and is unable to provide the history. She has been having fevers. She started having symptoms a few days ago. She recently tested positive for COVID-19. Her had tested positive before her. She is anxious. She is very worried and tearful about being put on the ventilator. She does agree to intubation if needed though. Date Seen 01/09/21 Time Seen by a Provider: 08:50 Attending Physician Chaya Stone MD PCP No,Local Physician Referring Physician Date of Admission Jan 08, 2021 at 20:05 Home Medications & Allergies Home Medications Reviewed patient Home Medication Reconciliation performed by pharmacy medication reconciliations ammonia refrigeration technician and/or nursing. Patients Allergies have been reviewed. Allergies Allergies Coded Allergies torsemide (Verified Allergy, Unknown, Rash, 01/06/21) Past Zhoikbm-Fewnwh-Rvidlx Hx Patient Social History Marrital Status: Tobacco Use?: No Smoking Status: Never a Smoker Substance use?: No Alcohol Use?: No Pt feels they are or have been: No Immunizations Up To Date Tetanus Booster (TDap): Less Than 5 Years Hepatitis A: No Hepatitis B: No Current Status status: No status: No Advance Directives: No Communicates: Verbally Primary Language: Yakut Preferred Spoken Language: Yakut Is interpretation needed?: No Sensory deficits: Vision impairment Past Medical History Surgeries: Gallbladder, Hysterectomy Asthma 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 oz. kg; 56.00 BMI Method: General Appearance: Moderate Distress (Tachypneic), Obese HEENT: PERRL/EOMI, Pharynx Normal Neck: Normal Inspection, Supple Respiratory: Decreased Breath Sounds, Respiratory Distress (Tachypneic and wearing BiPAP) Cardiovascular: No Edema, No Murmur, Tachycardia Gastrointestinal: Normal Bowel Sounds, Non Tender, Soft Extremity: Normal Inspection, Non Tender, No Pedal Edema Neurologic/Psychiatric: Alert, Oriented x3, No Motor/Sensory Deficits Skin: Normal Color, Warm/Dry Results Results/Procedures Labs Laboratory Tests 01/08/21 14:49 01/09/21 05:50 Patient resulted labs reviewed. Imaging: Reviewed Imaging Report Assessment/Plan Admission Diagnosis Acute respiratory failure due to COVID-19 Admission Status: Inpatient Order (span 2 midnights) Reason for Inpatient Admission: Respiratory failure on BiPAP Assessment and Plan Acute respiratory failure due to COVID-19 Covid+ 01/06 CTA with no evidence of pulmonary embolism, consistent with Covid pneumonia Requiring Vapotherm on arrival, transitioned to BiPAP this morning May require intubation soon Started on Decadron Discussed Actemra risk/benefits/EUA use and patient agrees Decrease dose of Actemra given due to full dose being unavailable TeleICU consulted, appreciate assistance Ddimer mildly elevated, started on prophylactic Lovenox Procalcitonin normal, antibiotics not given HTN Asthma HLD GERD Hold home meds Super super obesity Clinically significant, no acute management needs DVT prophylaxis: Lovenox Critical Care Critically Ill Patient Diagnosis/Problems Diagnosis/Problems (1) Acute respiratory failure due to COVID-19 Status: Acute (2) Super-super obese Status: Chronic (3) Asthma Status: Chronic (4) Hypertension Status: Chronic (5) Hyperlipidemia Status: Chronic (6) GERD (gastroesophageal reflux disease) Status: Chronic TESSA MITCHELL MD Jan 09, 2021 16:12
[2021-01-09] MEDS: LACTATED RINGERS 1,000 ML IV SCH (16:22)
[2021-01-09] MEDS ORDERED: PROPOFOL DRIP (ICU) 0 ML IV ONE (16:55)
[2021-01-09] MEDS ORDERED: FUROSEMIDE 40 MG/4 ML INJ (LASIX) ONE (17:00)
[2021-01-09] MEDS ORDERED: FUROSEMIDE 40 MG/4 ML INJ (LASIX) IVP ONE (17:00)
--- NOTE | 2021-01-09 18:51 | Procedure/Intervention Note ---
Procedures/Interventions Date of ETT Placement: Jan 09, 2021 Time of ETT Placement: 18:47 Intubation Method: orotracheal Tube Size: 7.5 Medications: Etomidate, Rocuronium Positive End Tide CO2: Yes Breath Sounds after Intubation: bilateral-equal Intubation Complications: no complications Post Intubation Xray: Yes Called to ICU to help intubate by data warehouse manager as order was given to intubate by eICU. Patient was 77% on BiPAP upon my arrival. She was given 20 mg of etomidate and 50 mg of rocuronium by me upon arrival. Using the glide scope I was able to visualize the tube passing between the cords 22 cm at the teeth. She did desaturate to 64% during intubation but quickly recovered to 80% on BiPAP at 450 mL tidal volume, 100% FiO2 10 of PEEP. AC mode. CODY GREGG APRN Jan 09, 2021 18:51
[2021-01-09] MEDS ORDERED: ROCURONIUM 10 MG/ML 5 ML SYRINGE IV ONE ×3 (19:00→20:09)
[2021-01-09] MEDS: PROPOFOL DRIP (ICU) 100 ML IV SCH ×3 (19:05→21:24)
--- NOTE | 2021-01-09 19:30 | Consultation - Surgery ---
History of Present Illness History of Present Illness Patient Consulted On(ritiak/time) 01/09/21 19:24 Date Seen by Provider: Jan 09, 2021 Time Seen by Provider: 19:24 History of Present Illness Consult for central line placment, poor venous access. Patient is a 45 year old female with covid with acute respiratory failure. Just intubated. Patient unable to get Picc line placed earlier. Needing central line. Patient unable to provide any information at this time. Allergies and Home Medications Allergies Coded Allergies: torsemide (Verified Allergy, Unknown, Rash, 01/06/21) Home Medications Albuterol Sulfate 18 Gm Hfa.aer.ad, 2 PUFF INH Q4H PRN for SHORTNESS OF BREATH, (Reported) Last Action: Reviewed Albuterol Sulfate 2.5 Mg/3 Ml Vial.neb, 2.5 MG INH Q4H PRN for WHEEZING Prescribed by: ROSALIND SILVERMAN on 01/06/21 1231 Last Action: Reviewed Azithromycin 500 Mg Tablet, 500 MG PO DAILY Prescribed by: ROSALIND SILVERMAN on 01/06/21 1231 Last Action: Reviewed Gemfibrozil 600 Mg Tablet, 600 MG PO BID, (Reported) Last Action: Reviewed Lisinopril/Hydrochlorothiazide 1 Each Tablet, 1 TAB PO DAILY, (Reported) Last Action: Reviewed Mometasone/Formoterol 13 Gm Hfa.aer.ad, 2 PUFF INH BID, (Reported) Last Action: Reviewed Montelukast Sodium 10 Mg Tablet, 10 MG PO HS, (Reported) Last Action: Reviewed Pantoprazole Sodium 40 Mg Tablet.dr, 40 MG PO HS, (Reported) Last Action: Reviewed Paroxetine HCl 30 Mg Tablet, 60 MG PO DAILY, (Reported) Last Action: Reviewed Prednisone 20 Mg Tab, 40 MG PO DAILY Prescribed by: ROSALIND SILVERMAN on 01/06/21 1231 Last Action: Reviewed Propranolol HCl 40 Mg Tablet, 40 MG PO BID, (Reported) Last Action: Reviewed Quetiapine Fumarate 50 Mg Tablet, 50 MG PO HS, (Reported) Last Action: Reviewed Patient Home Medication List Home Medication List Reviewed: Yes Past Zwfvrqs-Bcqanh-Riyrug Hx Patient Social History Smoking Status: Never a Smoker Alcohol Use?: No Have you traveled recently?: No Surgeries History of Surgeries: Yes Surgeries: Gallbladder, Hysterectomy Respiratory History of Respiratory Disorde: Yes Respiratory Disorders: Asthma Cardiovascular History of Cardiac Disorders: Yes Cardiac Disorders: High Cholesterol, Hypertension Neurological History of Neurological Disord: No 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 Genitourinary History of Genitourinary Disor: No Gastrointestinal History of Gastrointestinal Di: Yes Gastrointestinal Disorders: Gastroesophageal Reflux, Gall Bladder Disease Musculoskeletal History of Musculoskeletal Dis: No Endocrine History of Endocrine Disorders: Yes ("Pre-Diabetes") HEENT History of HEENT Disorders: No Cancer History of Cancer: No Psychosocial History of Psychiatric Problem: Yes Behavioral Health Disorders: Anxiety, Depression Reviewed Nursing Assessment Reviewed/Agree w Nursing PMH: Yes Family Medical History Significant Family History: No Pertinent Family Hx Review of Systems-General ROS-Unable to Obtain: Patient unable to provide information intubated. Physical Exam-General Problems Physical Exam Vital Signs Vital Signs - First Documented 01/08/21 01/09/21 14:30 08:00 Temp 38.4 Pulse 114 Resp 26 B/P (MAP) 151/98 (115) Pulse Ox 95 O2 Delivery Nasal Cannula O2 Flow Rate 3.00 FiO2 65 Capillary Refill : Less Than 3 Seconds General Appearance: WD/WN, no apparent distress, obese HEENT: PERRL/EOMI, normal ENT inspection Neck: supple, normal inspection Respiratory: decreased breath sounds, accessory muscle use, other (intubated) Cardiovascular: No JVD; tachycardia Gastrointestinal: soft; No distended Rectal: deferred Neurologic/Psychiatric: No alert (sedated); other (intubated) Skin: normal color, warm/dry Lymphatic: no adenopathy Data Review Labs Laboratory Tests 01/09/21 05:50: White Blood Count 6.3, Red Blood Count 3.85, Hemoglobin 10.7L, Hematocrit 34L, Mean Corpuscular Volume 89, Mean Corpuscular Hemoglobin 28, Mean Corpuscular Hemoglobin Concent 31L, Red Cell Distribution Width 14.9H, Platelet Count 228, Mean Platelet Volume 10.7, Immature Granulocyte % (Auto) 1, Neutrophils (%) (Auto) 78H, Lymphocytes (%) (Auto) 17, Monocytes (%) (Auto) 5, Eosinophils (%) (Auto) 0, Basophils (%) (Auto) 0, Neutrophils # (Auto) 4.9, Lymphocytes # (Auto) 1.1, Monocytes # (Auto) 0.3, Eosinophils # (Auto) 0.0, Basophils # (Auto) 0.0, Immature Granulocyte # (Auto) 0.0, Sodium Level 142, Potassium Level 3.6, Chloride Level 102, Carbon Dioxide Level 27, Anion Gap 13, Blood Urea Nitrogen 21H, Creatinine 0.83, Estimat Glomerular Filtration Rate 75, BUN/Creatinine Ratio 25, Glucose Level 91, Calcium Level 8.7, Corrected Calcium 8.9, Total Bilirubin 0.4, Aspartate Amino Transf (AST/SGOT) 40H, Alanine Aminotransferase (ALT/SGPT) 39, Alkaline Phosphatase 68, C-Reactive Protein High Sensitivity 3.65H, Total Protein 7.1, Albumin 3.7, Procalcitonin 0.11H 01/09/21 10:09: D-Dimer 0.60H 01/09/21 11:29: Glucometer 88 01/09/21 16:15: Glucometer 118H Microbiology 01/08/21 Blood Culture - Preliminary, Resulted No growth Assessment/Plan Assessment/Plan Assessment/Plan covid pneumonia acute respiratory failure requiring intubation poor venous access Intubated. Central line placed left femoral vein Medical management. PROCEDURE: U/S GUIDED LEFT FEMORAL VEIN CENTRAL LINE PLACEMENT- left groin prepped and draped in sterile fashion. U/s used to locate the left femoral vein. The left femoral veing accessed, dark nonpulsatile blood returned. Wire inserted and needle removed. 11 blade used to make skin incision at insertion point. Dilator advance and removed over wire. Triple lumen catheter advanced over wire and wire removed. All port accessed and flushed. Suture catheter in place. Sterile bandage applied. GABBY LOFTON DO Jan 09, 2021 19:30
--- NOTE | 2021-01-09 19:45 | Diagnostic Imaging Report ---
INDICATION: Cough, dyspnea, infiltrate. TECHNIQUE: Single view chest 6:59 PM. CORRELATION STUDY: 01/06/2021 FINDINGS: Interval intubation. Tip projects over the trachea at the level of the clavicles. Gastric tube has also been placed passing below left hemidiaphragm and the left upper quadrant. There has been development of rather extensive patchy bilateral pulmonary opacities throughout both lung dykes, right slightly greater than left. Findings are rather significantly changed from prior chest radiograph. Heart size is obscured but appears to be enlarged. Vasculature also appears to be increased. IMPRESSION: 1. Interval intubation. Placement of gastric tube. 2. Extensive bilateral pulmonary opacities present which have significantly changed from prior study. May very well reflect multilobe pneumonia which would include potential for Covid pneumonia. Given the rapid change, possibility of edema, hemorrhage and/or ARDS is also differential considerations. Dictated by: Dictated on workstation # [id number]
--- NOTE | 2021-01-09 19:46 | Diagnostic Imaging Report ---
INDICATION: TUBE ADJUSTMENT. TECHNIQUE: Single view chest 7:05 PM. CORRELATION STUDY: 01/09/2021 FINDINGS: There has been no appreciable interval change in the position of the endotracheal tube post adjustment. Tip remains projected interposed between the clavicles. Gastric tube tip remains left upper quadrant. Extensive bilateral pulmonary infiltrates are unchanged. IMPRESSION: 1. No appreciable change in follow-up chest radiograph. Endotracheal tube and gastric tube positioning is generally stable. Dictated by: Dictated on workstation # [id number]
[2021-01-09] MEDS ORDERED: ETOMIDATE IV SOLN 20 MG/10 ML VIAL IV ONE (20:09)
[2021-01-09 20:34] LABS: ABG BASE EXCESS 1.9 MMOL/L (-2.5-2.5); ABG OXYGEN SATURATION 91 % (94-100); ABG PCO2 49 MMHG (35-45); ABG PH 7.36 (7.37-7.43); ABG PO2 63 MMHG (79-93); ABG TCO2 28.5 MMOL/L (21.0-31.0)
[2021-01-09 20:37] LABS: ALLENS TEST YES-POS; INSPIRED O2 100%; PATIENT TEMP 36.2; VENTILATOR YES
[2021-01-09] MEDS ORDERED: DexMEDEtomidine 250 ML DRIP 250 ML IV ONE (21:26)
[2021-01-09] MEDS ORDERED: NS IV 1000 ML 1,000 ML ONE (23:08)
[2021-01-10] VITALS (28 sets, daily range): BP systolic 95–146; BP diastolic 49–84
--- NOTE | 2021-01-10 01:15 | Anesthesia-Procedure Note ---
Procedures/Interventions Procedure Start/Stop/Diagnosis Date of Procedure: Jan 09, 2021 Start Time: 23:40 Stop Time: 00:30 Arterial Line Arterial Line Catheter: 20G Type: Radial Location: Left, Right Procedure: prepped, draped in sterile fashion, patient tolerated procedure well, no immediate complications, post procedure area cleaned, post procedure dressing applied Additional Procedures Procedures Multiple Attempts for A-line bilaterally under US visualization. Access obtained x 2 bilaterally, unable to thread catheter due to guide wire bending upon advancement. Attempts were both in an out of plane and in plane techniques. LORENZO JONES CRNA Jan 10, 2021 01:15
[2021-01-10] MEDS: PROPOFOL DRIP (ICU) 100 ML IV SCH ×11 (01:32→20:47)
[2021-01-10] MEDS: DexMEDEtomidine 250 ML DRIP 250 ML IV SCH ×6 (01:33→22:29)
[2021-01-10] MEDS: RT-ALBUTEROL HFA 8.5 GM INHALER IH SCH ×6 (02:21→21:40)
[2021-01-10 04:16] LABS: BASOPHILS % (AUTO) 0 % (0-10); EOSINOPHILS % (AUTO) 0 % (0-10); HEMATOCRIT 35 % (35-52); HEMOGLOBIN 11.5 g/dL (11.5-16.0); LYMPHOCYTES # (AUTO) 0.7 10^3/uL (1.0-4.0); LYMPHOCYTES % (AUTO) 19 % (12-44); MEAN CORPUSCULAR HEMOGLOBIN 29 pg (25-34); MEAN CORPUSCULAR HGB CONC 33 g/dL (32-36); MEAN CORPUSCULAR VOLUME 87 fL (80-99); MEAN PLATELET VOLUME 10.6 fL (9.0-12.2); MONOCYTES # (AUTO) 0.1 10^3/uL (0.0-1.0); MONOCYTES % (AUTO) 3 % (0-12); NEUTROPHILS # (AUTO) 2.9 10^3/uL (1.8-7.8); NEUTROPHILS % (AUTO) 77 % (42-75); PLATELET COUNT 248 10^3/uL (130-400); WHITE BLOOD COUNT 3.8 10^3/uL (4.3-11.0)
[2021-01-10 04:28] LABS: POTASSIUM 4.1 MMOL/L (3.6-5.0)
[2021-01-10 04:30] LABS: CALCIUM 8.8 MG/DL (8.5-10.1)
[2021-01-10 04:34] LABS: CREATININE SERUM 1.12 MG/DL (0.60-1.30)
[2021-01-10 04:36] LABS: MAGNESIUM 2.4 MG/DL (1.6-2.4)
[2021-01-10] MEDS: POTASSIUM CL 10MEQ/50ML IVPB 50 ML IV SCH (05:02)
[2021-01-10] MEDS: MAGNESIUM 1 GM/100 ML IVPB 100 ML IV SCH (05:02)
[2021-01-10] MEDS: KCL 20 MEQ TAB (K-DUR) PO SCH (05:02)
[2021-01-10] MEDS: inSUlin ASPART (NovoLOG) 1 UNIT/0.01 ML (CHARGE PER UNIT) SC SCH ×4 (05:02→20:17)
[2021-01-10 05:40] LABS: ABG BASE EXCESS 2.9 MMOL/L (-2.5-2.5); ABG OXYGEN SATURATION 92 % (94-100); ABG PCO2 35 MMHG (35-45); ABG PH 7.48 (7.37-7.43); ABG PO2 57 MMHG (79-93); ABG TCO2 27.9 MMOL/L (21.0-31.0)
[2021-01-10 05:44] LABS: ALLENS TEST YES-POS; INSPIRED O2 100%; VENTILATOR YES
[2021-01-10 05:45] LABS: PATIENT TEMP 35
--- NOTE | 2021-01-10 06:55 | Occ Therapy Progress Note ---
Therapy Progress Note Orders received. Pt is currently intubated. OT will continue to monitor pt and initiate therapy when pt is more medically stable and able to actively participate in skilled therapy. SONY OLEA Jan 10, 2021 06:55
[2021-01-10] MEDS: UMECLIDINIUM BROMIDE (INCRUSE ELLIPTA) 7'S IH SCH (07:06)
--- NOTE | 2021-01-10 08:00 | Diagnostic Imaging Report ---
INDICATION: Respiratory distress. Comparison made with prior examination of 01/09/2021. FINDINGS: There is diffuse bilateral airspace disease which is unchanged. Some underlying central pulmonary venous congestion cannot be excluded. There is no pneumothorax. ET and NG tubes are in satisfactory position. IMPRESSION: Persistent diffuse bilateral airspace disease. Again some underlying central pulmonary venous congestion cannot be excluded. Dictated by: Dictated on workstation # [id number]
--- NOTE | 2021-01-10 08:37 | Physical Therapy Progress Note ---
Therapy Progress Note Pt is currently intubated. PT will continue to monitor pt and initiate therapy when pt is more medically stable and able to actively participate in skilled therapy. REBEKAH NORIEGA PT Jan 10, 2021 08:37
[2021-01-10] MEDS: ENOXAPARIN 60 MG/0.6 ML (LOVENOX) SYR SC SCH ×2 (08:55→20:46)
[2021-01-10] MEDS: PANTOPRAZOLE 40 MG (PROTONIX) VIAL IV SCH (08:55)
--- NOTE | 2021-01-10 09:56 | Tele-ICU Progress Note ---
Subjective Date Seen by a Provider: Jan 10, 2021 Time Seen by a Provider: 09:56 Sepsis Event Evaluation Height, Weight, BMI Height: '" Weight: lbs. oz. kg; 56.00 BMI Method: Focused Exam Lactate Level 01/08/21 14:49: Lactic Acid Level 1.08 Exam Exam Patient acknowledged, consented, and participated in this virtual visit which wa s conducted using real time audio/video Vital Signs Date Time Temp Pulse Resp B/P (MAP) Pulse Ox O2 Delivery O2 Flow Rate FiO2 01/10/21 09:36 133/72 01/10/21 09:35 133/72 01/10/21 09:35 133/72 01/10/21 07:30 37.0 01/10/21 07:07 64 24 84 100 01/10/21 07:00 64 01/10/21 06:08 66 144/82 01/10/21 06:07 66 144/82 01/10/21 06:00 65 22 146/82 (103) 86 Mechanical Ventilator 100.00 01/10/21 05:18 64 140/86 01/10/21 05:00 64 24 139/81 (100) 89 Mechanical Ventilator 100.00 01/10/21 04:00 65 29 115/65 (82) 84 Mechanical Ventilator 100.00 01/10/21 03:00 66 17 138/75 (96) 89 Mechanical Ventilator 100.00 01/10/21 02:21 65 28 88 100 01/10/21 02:00 66 26 136/82 (100) 89 Mechanical Ventilator 100.00 01/10/21 01:33 66 129/77 01/10/21 01:33 66 129/77 01/10/21 01:32 66 129/77 01/10/21 01:00 66 01/10/21 01:00 66 26 129/78 (95) 89 Mechanical Ventilator 100.00 01/10/21 00:00 67 24 127/75 (92) 88 Mechanical Ventilator 100.00 01/10/21 00:00 89 Mechanical Ventilator 100 01/09/21 23:00 68 24 117/73 (88) 88 Mechanical Ventilator 100.00 01/09/21 22:04 64 24 91 100 01/09/21 22:00 64 24 109/66 (80) 91 Mechanical Ventilator 100.00 01/09/21 21:28 64 115/73 01/09/21 21:24 65 118/72 01/09/21 21:23 64 118/72 01/09/21 21:00 64 24 115/73 (87) 90 Mechanical Ventilator 100.00 01/09/21 20:00 66 24 115/73 (87) 87 Mechanical Ventilator 100.00 01/09/21 20:00 89 Mechanical Ventilator 100 01/09/21 19:30 68 24 85 100 01/09/21 19:05 83 171/117 01/09/21 19:00 81 24 112/62 (79) 80 Mechanical Ventilator 100.00 01/09/21 19:00 90 01/09/21 18:45 100 01/09/21 18:00 74 16 164/88 (113) 82 NIV Bilevel 100.00 01/09/21 17:21 NIV Bilevel 100.00 01/09/21 17:00 106 18 106/59 (75) 85 NIV Bilevel 100.00 01/09/21 16:17 36.6 01/09/21 16:00 90 35 112/59 (76) 87 NIV Bilevel 100.00 01/09/21 15:00 77 26 116/52 (73) 87 NIV Bilevel 100.00 01/09/21 14:00 94 18 116/61 (79) 88 NIV Bilevel 100.00 01/09/21 13:56 98 36 87 100.00 01/09/21 13:00 92 20 91 NIV Bilevel 70.00 01/09/21 13:00 88 01/09/21 12:00 105 38 90 NIV Bilevel 70.00 01/09/21 11:29 38.7 01/09/21 11:22 101 141/81 01/09/21 11:00 108 37 141/81 (101) 91 NIV Bilevel 70.00 01/09/21 10:16 99 32 90 80.00 01/09/21 10:00 107 10 98/74 (82) 90 NIV Bilevel 70.00 I & O 01/10/21 07:00 Intake Total 2400 ml Output Total 1700 ml Balance 700 ml Height & Weight Height: '" Weight: lbs. oz. kg; 56.00 BMI Method: General Appearance: Moderate Distress (Tachypneic), Obese HEENT: PERRL/EOMI, Pharynx Normal Neck: Normal Inspection, Supple Respiratory: Decreased Breath Sounds, Respiratory Distress (Tachypneic and wearing BiPAP) Cardiovascular: No Edema, No Murmur, Tachycardia Capillary Refill: Less Than 3 Seconds Gastrointestinal: soft; No distended Extremity: Normal Inspection, Non Tender, No Pedal Edema Neurologic/Psychiatric: Alert, Oriented x3, No Motor/Sensory Deficits Skin: Normal Color, Warm/Dry Results Lab Laboratory Tests 01/08/21 14:49 01/09/21 05:50 01/10/21 03:40 Assessment/Plan Assessment/Plan (Tele-ICU Physician , Progress Note ) Available chart/ vitals / labs / Images reviewed Video assessment done using teleICU camera, rest of exam as per RN Discussed with RN Events overnight : intubated FEBRILE 37 I/O = even Drips: Pressors: , hemodynamically stable Sedation gtt: propofol 50 precedex 1.5 ( RASS ) EXAM PER RN Consultants: Hospital course: Patient admitted 01/06 - dx with COVID , Tx with z -max 01/08 - admitted with hypoxia , CTA neg for PE , 3 L NC 01/09 - moved to ICU on Vapothem 01/09 - intubated - 100 peep 16, line placed LEFT FEM 01/10 increased peep 20 Now in ICU, hemodynamically stable Video assessment done using teleICU camera, rest of exam as per RN Discussed with RN. Consultants: A/P Acute hypoxic resp failure - on AC rr 24, 360 - +16 . 100 % --> will dercere rr to 16 and increase peep to 20 (PAP30s -prone position to try today - conservative fluid strategy (aim for even MBEA-Bicclnzbyor-2/COVID-19 infection ( Dx 01/06 ) - NOT on Remdesivir - outside the Tx window - Actemra 01/09 -Steroids IV - started with high dose with asthma / bronchospma in mind -> with low PAP will decrease to 10 day today decadron -Hypercoagulable state , DDIMER on 01/09 and 01/10 is low =0.6 -> lovenox ppx dose ( no evidence of large PE on CT 01/08 ) monitor for superimposed bact PNA -PCT low , OFF abx - S/P ACTEMRA CT compatable with COVID Cx sputum pending UA 01/10 pending H/o Asthma - cont br -dilators -IC steroid q 8h today "PRE- Diabetes Mellitus" 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 Discussed with RN to reach out if any questions or concerns Discussed with Dr Mcgraw A total of 40 minutes of critical care time was devoted to this patient today, required to treat and/or prevent further deterioration of critical care condition ( as above ) CHAI RUFFIN MD Jan 10, 2021 09:56
[2021-01-10] MEDS ORDERED: fentaNYL INJ 100 MCG/2 ML AMP IVP PRN (10:00)
[2021-01-10 10:01] LABS: CLARITY,URINE CLOUDY; COLOR,URINE YELLOW; GLUCOSE, URINE (UA) NEGATIVE (NEGATIVE); KETONES,URINE NEGATIVE (NEGATIVE); LEUKOCYTE ESTERASE ,URINE NEGATIVE (NEGATIVE); NITRITE,URINE NEGATIVE (NEGATIVE); PH,URINE 5.5 (5-9); PROTEIN,URINE 1+ (NEGATIVE)
[2021-01-10] MEDS ORDERED: ROCURONIUM 10 MG/ML 5 ML SYRINGE IV ONE ×2 (10:07→10:08)
[2021-01-10] MEDS ORDERED: LACTATED RINGERS 1,000 ML IV ONE (10:09)
[2021-01-10 10:11] LABS: AMORPHOUS SEDIMENT,UR LARGE AMOR URATES /LPF; BACTERIA,URINE NEGATIVE /HPF; BILIRUBIN,URINE 1+ (NEGATIVE); URIC ACID CRYSTALS,URINE LARGE /LPF
[2021-01-10] MEDS: ROCURONIUM 10 MG/ML 5 ML SYRINGE IV PRN ×2 (10:15→14:15)
[2021-01-10] MEDS: LACTATED RINGERS 1,000 ML IV SCH (10:47)
--- NOTE | 2021-01-10 18:27 | Progress Note - Hospitalist ---
Subjective HPI/CC On Admission Date Seen by Provider: Jan 10, 2021 Time Seen by Provider: 09:40 Ami Wong is a 45-year-old female with past medical history of asthma, hypertension, hyperlipidemia, GERD, super super obesity, who presented with shortness of breath. Upon my examination, she is wearing BiPAP and is unable to provide the history. She has been having fevers. She started having symptoms a few days ago. She recently tested positive for COVID-19. Her had tested positive before her. She is anxious. She is very worried and tearful about being put on the ventilator. She does agree to intubation if needed though. Subjective/Events-last exam She is intubated and sedated. I spoke with her on the phone regarding her severe illness and poor prognosis. We discussed that her oxygen levels have been low despite maximal ventilator support. We discussed the futility of CPR if she was to have a cardiac arrest and he was in agreement to transitioning to DNR. We discussed the plan to begin paralytics and proning. He expressed understanding and was grateful for the update. Focused Exam Lactate Level 01/08/21 14:49: Lactic Acid Level 1.08 Objective Exam Vital Signs Vital Signs Date Time Temp Pulse Resp B/P (MAP) Pulse Ox O2 Delivery O2 Flow Rate FiO2 01/10/21 17:00 63 13 120/62 (81) 98 Mechanical Ventilator 100.00 01/10/21 16:25 35.7 01/10/21 14:21 100 Capillary Refill : Less Than 3 Seconds General Appearance: No Apparent Distress, Obese, Other (intubated and sedated) Respiratory: Decreased Breath Sounds, Other (intubated and mechanically ventilated) Cardiovascular: Regular Rate, Rhythm, No Murmur Gastrointestinal: Normal Bowel Sounds, Soft Extremity: Normal Inspection, Non Tender, Pedal Edema Neurologic/Psychiatric: Other (sedated) Skin: Normal Color, Warm/Dry Results/Procedures Lab Laboratory Tests 01/10/21 03:40 Patient resulted labs reviewed. Imaging: Reviewed Imaging Report Assessment/Plan Assessment and Plan Assess & Plan/Chief Complaint Acute respiratory distress syndrome due to COVID-19 Endotracheally intubated Asthma Covid+ 01/06 CTA with no evidence of pulmonary embolism, consistent with Covid pneumonia Intubated 01/09, requiring high FiO2 and PEEP Attempt proning Begin paralytics Continue Decadron s/p Actemra, decreased dose of Actemra given due to full dose being unavail able TeleICU consulted, appreciate assistance Ddimer mildly elevated, started on prophylactic Lovenox Procalcitonin normal, antibiotics not given HTN Asthma HLD GERD Hold home meds Super super obesity Clinically significant, no acute management needs DVT prophylaxis: Lovenox Critical Care Critically Ill Patient Diagnosis/Problems Diagnosis/Problems (1) Acute respiratory distress syndrome (ARDS) due to COVID-19 virus Status: Acute (2) Endotracheally intubated Status: Acute (3) Acute respiratory failure due to COVID-19 Status: Acute (4) Super-super obese Status: Chronic (5) Asthma Status: Chronic (6) Hypertension Status: Chronic (7) Hyperlipidemia Status: Chronic (8) GERD (gastroesophageal reflux disease) Status: Chronic TESSA MITCHELL MD Jan 10, 2021 18:27
[2021-01-11] VITALS (31 sets, daily range): BP systolic 98–157; BP diastolic 46–96
[2021-01-11] MEDS: PROPOFOL DRIP (ICU) 100 ML IV SCH ×8 (00:19→21:41)
[2021-01-11] MEDS: RT-ALBUTEROL HFA 8.5 GM INHALER IH SCH ×6 (01:55→21:55)
[2021-01-11] MEDS: DexMEDEtomidine 250 ML DRIP 250 ML IV SCH ×6 (02:25→22:32)
[2021-01-11 02:41] LABS: ABG BASE EXCESS 2.4 MMOL/L (-2.5-2.5); ABG OXYGEN SATURATION 92 % (94-100); ABG PCO2 48 MMHG (35-45); ABG PH 7.37 (7.37-7.43); ABG PO2 67 MMHG (79-93); ABG TCO2 28.8 MMOL/L (21.0-31.0)
[2021-01-11 02:42] LABS: ALLENS TEST YES-POS; INSPIRED O2 100%; PATIENT TEMP 36.6; VENTILATOR YES
[2021-01-11 02:52] LABS: ALBUMIN 3.4 GM/DL (3.2-4.5); POTASSIUM 4.2 MMOL/L (3.6-5.0)
[2021-01-11] MEDS: ROCURONIUM 10 MG/ML 5 ML SYRINGE IV PRN (02:52)
[2021-01-11 02:53] LABS: CALCIUM 8.5 MG/DL (8.5-10.1)
[2021-01-11 02:55] LABS: TOTAL PROTEIN 7.6 GM/DL (6.4-8.2)
[2021-01-11 02:56] LABS: BILIRUBIN,TOTAL 0.5 MG/DL (0.1-1.0)
[2021-01-11 02:58] LABS: CREATININE SERUM 1.08 MG/DL (0.60-1.30); PHOSPHORUS 2.9 MG/DL (2.3-4.7)
[2021-01-11 03:01] LABS: MAGNESIUM 2.5 MG/DL (1.6-2.4)
[2021-01-11 03:06] LABS: BASOPHILS % (AUTO) 0 % (0-10); EOSINOPHILS % (AUTO) 0 % (0-10); HEMATOCRIT 35 % (35-52); HEMOGLOBIN 11.4 g/dL (11.5-16.0); LYMPHOCYTES % (AUTO) 19 % (12-44); MEAN CORPUSCULAR HEMOGLOBIN 29 pg (25-34); MEAN CORPUSCULAR HGB CONC 33 g/dL (32-36); MEAN CORPUSCULAR VOLUME 88 fL (80-99); MEAN PLATELET VOLUME 10.6 fL (9.0-12.2); MONOCYTES # (AUTO) 0.2 10^3/uL (0.0-1.0); MONOCYTES % (AUTO) 4 % (0-12); NEUTROPHILS # (AUTO) 4.1 10^3/uL (1.8-7.8); NEUTROPHILS % (AUTO) 77 % (42-75); PLATELET COUNT 246 10^3/uL (130-400); WHITE BLOOD COUNT 5.4 10^3/uL (4.3-11.0)
[2021-01-11] MEDS: inSUlin ASPART (NovoLOG) 1 UNIT/0.01 ML (CHARGE PER UNIT) SC SCH ×2 (04:29→11:44)
[2021-01-11] MEDS: MAGNESIUM 1 GM/100 ML IVPB 100 ML IV SCH (05:40)
[2021-01-11] MEDS: POTASSIUM CL 10MEQ/50ML IVPB 50 ML IV SCH (05:40)
[2021-01-11] MEDS: KCL 20 MEQ TAB (K-DUR) PO SCH (05:41)
[2021-01-11] MEDS: LACTATED RINGERS 1,000 ML IV SCH (05:57)
--- NOTE | 2021-01-11 06:45 | Diagnostic Imaging Report ---
INDICATION: Respiratory distress. Comparison with 01/10/2021. FINDINGS: NG tube remain in good position. ET tube has been partially withdrawn, now tip is at the level of C7. There continues to be cardiomegaly. There had been slight clearing of the left lung. Rather dense infiltrate remains throughout the right lung and left lung base. IMPRESSION: 1. ET tube has been partially withdrawn, tip is now at level of C7. Would consider advancing ET tube. 2. Persistent right lung infiltrate with some clearing noted on the left. Dictated by: Dictated on workstation # [id number]
--- NOTE | 2021-01-11 06:58 | Occ Therapy Progress Note ---
Therapy Progress Note Pt is currently intubated. OT will continue to monitor pt and initiate therapy when pt is more medically stable and able to actively participate in skilled therapy. SONY OLEA Jan 11, 2021 06:58
--- NOTE | 2021-01-11 07:53 | Physical Therapy Progress Note ---
Therapy Progress Note Pt is currently intubated. PT will continue to monitor pt and initiate therapy when pt is more medically stable and able to actively participate in skilled therapy. CELI ASHTON PT Jan 11, 2021 07:53
[2021-01-11] MEDS: CISATRACURIUM INJECTION 100 MG in NS (IVPB) 200 ML IV SCH ×7 (08:30→22:32)
[2021-01-11] MEDS: ENOXAPARIN 60 MG/0.6 ML (LOVENOX) SYR SC SCH ×2 (09:13→19:50)
[2021-01-11] MEDS: PANTOPRAZOLE 40 MG (PROTONIX) VIAL IV SCH (09:13)
--- NOTE | 2021-01-11 09:29 | Tele-ICU Progress Note ---
Subjective Date Seen by a Provider: Jan 11, 2021 Time Seen by a Provider: 10:30 Subjective/Events-last exam Intubated for COVID PNA, Now on AC 16 Vt 400 FiO2 100%, PEEP 24 ABG 7.37/48/67 CXR shows increased HS and extensive infiltrates, pt is morbidly obese D dimer 0.4 on Lovenox 60 bid Started on Propofol 16, Precedex 1.5, also on Nimbex 0.3 Not on Remdesivir, outside window Received Actrema on 01/09 Pt is DNR, Has poor UO but has improved Sepsis Event Evaluation Height, Weight, BMI Height: '" Weight: lbs. oz. kg; 56.00 BMI Method: Focused Exam Lactate Level 01/08/21 14:49: Lactic Acid Level 1.08 Exam Exam Patient acknowledged, consented, and participated in this virtual visit which was conducted using real time audio/video Vital Signs Date Time Temp Pulse Resp B/P (MAP) Pulse Ox O2 Delivery O2 Flow Rate FiO2 01/11/21 09:14 61 140/73 01/11/21 09:13 61 140/73 01/11/21 08:00 36.0 01/11/21 06:38 61 25 86 100 01/11/21 06:03 62 130/68 01/11/21 06:03 62 130/68 01/11/21 06:03 62 130/68 01/11/21 06:00 62 21 130/68 (88) 87 Mechanical Ventilator 100.00 01/11/21 05:00 73 16 145/74 (97) 92 Mechanical Ventilator 100.00 01/11/21 04:00 97 Mechanical Ventilator 100 01/11/21 04:00 64 19 130/70 (90) 97 Mechanical Ventilator 100.00 01/11/21 03:07 63 110/66 01/11/21 03:07 63 110/66 01/11/21 03:00 64 19 110/66 (81) Mechanical Ventilator 100.00 01/11/21 02:25 64 100/46 01/11/21 02:00 64 20 98/55 (62) 93 Mechanical Ventilator 100.00 01/11/21 01:55 64 26 96 100 01/11/21 01:00 64 16 114/61 (81) 94 Mechanical Ventilator 100.00 01/11/21 01:00 64 01/11/21 00:19 63 103/49 01/11/21 00:19 63 103/49 01/11/21 00:00 65 18 109/49 (62) 95 Mechanical Ventilator 100.00 01/11/21 00:00 97 Mechanical Ventilator 100 01/10/21 23:00 65 19 110/59 (74) 95 Mechanical Ventilator 100.00 01/10/21 22:29 64 115/58 01/10/21 22:00 63 18 106/67 (80) 99 Mechanical Ventilator 100.00 01/10/21 21:41 64 24 97 100 01/10/21 21:00 62 16 129/59 (82) 99 Mechanical Ventilator 100.00 01/10/21 20:47 63 127/62 01/10/21 20:47 64 127/62 01/10/21 20:00 97 Mechanical Ventilator 100 01/10/21 20:00 36.2 01/10/21 20:00 62 16 118/65 (82) 98 Mechanical Ventilator 100.00 01/10/21 19:00 60 15 119/56 (77) 98 Mechanical Ventilator 100.00 01/10/21 19:00 60 01/10/21 18:29 113/67 01/10/21 18:28 113/67 01/10/21 18:27 113/67 01/10/21 18:14 62 24 96 100 01/10/21 18:00 66 21 113/67 (82) 92 Mechanical Ventilator 100.00 01/10/21 17:00 63 13 120/62 (81) 98 Mechanical Ventilator 100.00 01/10/21 16:25 35.7 Mechanical Ventilator 100.00 01/10/21 16:20 Mechanical Ventilator 100 01/10/21 16:00 65 13 100/57 (71) 96 Mechanical Ventilator 100.00 01/10/21 15:00 64 16 102/51 (68) 94 Mechanical Ventilator 100.00 01/10/21 14:21 61 16 86 100 01/10/21 14:14 105/60 01/10/21 14:13 105/60 01/10/21 14:13 105/60 01/10/21 14:00 63 21 98/56 (70) 86 Mechanical Ventilator 100.00 01/10/21 13:00 62 01/10/21 13:00 62 15 111/60 (77) 93 Mechanical Ventilator 100.00 01/10/21 12:20 93 Mechanical Ventilator 100 01/10/21 12:00 65 16 99/54 (69) 93 Mechanical Ventilator 100.00 01/10/21 11:35 36.2 01/10/21 11:00 64 16 98/55 (69) 93 Mechanical Ventilator 100.00 01/10/21 10:35 66 16 88 100 01/10/21 10:00 68 31 95/49 (64) 78 Mechanical Ventilator 100.00 01/10/21 09:36 133/72 01/10/21 09:35 133/72 01/10/21 09:35 133/72 I & O 01/11/21 06:59 Intake Total 2550 ml Output Total 850 ml Balance 1700 ml Height & Weight Height: '" Weight: lbs. oz. kg; 56.00 BMI Method: General Appearance: No Apparent Distress, Obese, Other (intubated and sedated) HEENT: PERRL/EOMI, Pharynx Normal Neck: Normal Inspection, Supple Respiratory: Decreased Breath Sounds, Rhonci, Other (intubated and mechanically ventilated) Cardiovascular: Regular Rate, Rhythm, No Murmur Capillary Refill: Less Than 3 Seconds Gastrointestinal: normal bowel sounds, non tender, soft; No distended Extremity: Normal Inspection, Non Tender, No Pedal Edema, Pedal Edema, Other (Right PICC, site looks ok) Neurologic/Psychiatric: Other (sedated) Skin: Normal Color, Warm/Dry Results Lab Laboratory Tests 01/10/21 03:40 01/11/21 02:20 Assessment/Plan Assessment/Plan COVID PNA, will leave sedated on vent continue above meds, micro shows normal resp sara Acute hypoxic resp failure - on AC 16, 400 - +24 . 100 % --> -prone position to try today - conservative fluid strategy (aim for even [id number]/COVID-19 infection ( Dx 01/06 ) - NOT on Remdesivir - outside the Tx window - Actemra 01/09 -Steroids IV - started with high dose with asthma / bronchospma in mind -> with low PAP will decrease to 10 day today decadron -Hypercoagulable state , DDIMER on 01/09 and 01/10 is low =0.6 -> lovenox ppx dose ( no evidence of large PE on CT 01/08 ) monitor for superimposed bact PNA -PCT low , OFF abx - S/P ACTEMRA CT compatable with COVID Cx sputum pending UA 01/10 pending H/o Asthma - cont br -dilators -IC steroid q 8h today "PRE- Diabetes Mellitus" [employer] - ISS , close f/up on steroids GERD - PPI will start TF today Lines : 01/10 RIGHT single PICC (Central Line Necessity Reviewed) [place]: OG: Nutrition: try Po id tolerates Analgesia: ma Anxiety/ delirium na VTE Prophylaxis: lovenox proph Stress Ulcer Prophylaxis: PPI Glycemic Control: Critical Care: Critically Ill Patient Time spent with patient (mins): 25 MALACHI KRUGER MD Jan 11, 2021 09:29
[2021-01-11] MEDS: UMECLIDINIUM BROMIDE (INCRUSE ELLIPTA) 7'S IH SCH (10:38)
[2021-01-11] MEDS: inSUlin ASPART (NovoLOG) 1 UNIT/0.01 ML (CHARGE PER UNIT) SQ SCH ×3 (11:43→23:43)
--- NOTE | 2021-01-11 12:03 | Progress Note - Hospitalist ---
Subjective HPI/CC On Admission Date Seen by Provider: Jan 11, 2021 Time Seen by Provider: 09:40 Ami Wong is a 45-year-old female with past medical history of asthma, hypertension, hyperlipidemia, GERD, super super obesity, who presented with shortness of breath. Upon my examination, she is wearing BiPAP and is unable to provide the history. She has been having fevers. She started having symptoms a few days ago. She recently tested positive for COVID-19. Her had tested positive before her. She is anxious. She is very worried and tearful about being put on the ventilator. She does agree to intubation if needed though. Subjective/Events-last exam She remains intubated and sedated. Focused Exam Lactate Level 01/08/21 14:49: Lactic Acid Level 1.08 Objective Exam Vital Signs Vital Signs Date Time Temp Pulse Resp B/P (MAP) Pulse Ox O2 Delivery O2 Flow Rate FiO2 01/11/21 11:24 35.9 01/11/21 11:00 69 144/70 01/11/21 10:38 16 99 100 01/11/21 10:00 Mechanical Ventilator 100.00 Capillary Refill : Less Than 3 Seconds General Appearance: No Apparent Distress, Obese, Other (Intubated and sedated) Respiratory: No Respiratory Distress, Decreased Breath Sounds, Other (intubated and mechanically ventilated) Cardiovascular: Regular Rate, Rhythm, No Edema, No Murmur Gastrointestinal: Normal Bowel Sounds, Soft Extremity: Normal Inspection, No Pedal Edema Neurologic/Psychiatric: Other (Sedated and paralyzed) Skin: Normal Color, Warm/Dry Results/Procedures Lab Laboratory Tests 01/11/21 02:20 Patient resulted labs reviewed. Imaging: Reviewed Imaging Report Assessment/Plan Assessment and Plan Assess & Plan/Chief Complaint Acute respiratory distress syndrome due to COVID-19 Endotracheally intubated Asthma Covid+ 01/06 CTA with no evidence of pulmonary embolism, consistent with Covid pneumonia Intubated 01/09, requiring high FiO2 and PEEP, oxygenation improved this morning Continue proning Continue paralytics Continue Decadron s/p Actemra, decreased dose of Actemra given due to full dose being unavailable TeleICU consulted, appreciate assistance Ddimer mildly elevated, started on prophylactic Lovenox Procalcitonin normal, antibiotics not given BNP normal, hold off on diuretics Begin tube feeds HTN Asthma HLD GERD Hold home meds Super super obesity Clinically significant, no acute management needs DVT prophylaxis: Lovenox Critical Care Critically Ill Patient Diagnosis/Problems Diagnosis/Problems (1) Acute respiratory distress syndrome (ARDS) due to COVID-19 virus Status: Acute (2) Endotracheally intubated Status: Acute (3) Acute respiratory failure due to COVID-19 Status: Acute (4) Super-super obese Status: Chronic (5) Asthma Status: Chronic (6) Hypertension Status: Chronic (7) Hyperlipidemia Status: Chronic (8) GERD (gastroesophageal reflux disease) Status: Chronic TESSA MITCHELL MD Jan 11, 2021 12:03
[2021-01-12] VITALS (30 sets, daily range): BP systolic 82–166; BP diastolic 30–76
[2021-01-12] MEDS: PROPOFOL DRIP (ICU) 100 ML IV SCH ×7 (00:57→14:00)
[2021-01-12] MEDS: LACTATED RINGERS 1,000 ML IV SCH ×2 (00:58→19:44)
[2021-01-12] MEDS: RT-ALBUTEROL HFA 8.5 GM INHALER IH SCH ×6 (02:26→22:10)
[2021-01-12] MEDS: CISATRACURIUM INJECTION 100 MG in NS (IVPB) 200 ML IV SCH ×6 (02:30→21:12)
[2021-01-12 03:27] LABS: ABG BASE EXCESS 0.4 MMOL/L (-2.5-2.5); ABG OXYGEN SATURATION 93 % (94-100); ABG PCO2 70 MMHG (35-45); ABG PO2 82 MMHG (79-93); ABG TCO2 29.8 MMOL/L (21.0-31.0)
[2021-01-12 03:29] LABS: ABG PH 7.22 (7.37-7.43); ALLENS TEST POSITIVE; BASOPHILS % (AUTO) 0 % (0-10); EOSINOPHILS % (AUTO) 0 % (0-10); HEMATOCRIT 36 % (35-52); HEMOGLOBIN 12.5 g/dL (11.5-16.0); INSPIRED O2 100; LYMPHOCYTES # (AUTO) 1.3 10^3/uL (1.0-4.0); LYMPHOCYTES % (AUTO) 17 % (12-44); MEAN CORPUSCULAR HEMOGLOBIN 31 pg (25-34); MEAN CORPUSCULAR HGB CONC 35 g/dL (32-36); MEAN CORPUSCULAR VOLUME 88 fL (80-99); MEAN PLATELET VOLUME 10.2 fL (9.0-12.2); MONOCYTES # (AUTO) 0.2 10^3/uL (0.0-1.0); MONOCYTES % (AUTO) 3 % (0-12); NEUTROPHILS # (AUTO) 5.7 10^3/uL (1.8-7.8); NEUTROPHILS % (AUTO) 78 % (42-75); PATIENT TEMP 36.1; PLATELET COUNT 283 10^3/uL (130-400); VENTILATOR YES; WHITE BLOOD COUNT 7.3 10^3/uL (4.3-11.0)
[2021-01-12] MEDS: DexMEDEtomidine 250 ML DRIP 250 ML IV SCH ×3 (03:34→17:47)
[2021-01-12 03:40] LABS: CALCIUM 7.9 MG/DL (8.5-10.1)
[2021-01-12 03:44] LABS: CREATININE SERUM 0.75 MG/DL (0.60-1.30); PHOSPHORUS 2.4 MG/DL (2.3-4.7)
[2021-01-12 03:46] LABS: MAGNESIUM 2.5 MG/DL (1.6-2.4)
[2021-01-12] MEDS: KCL 20 MEQ TAB (K-DUR) PO SCH (04:10)
[2021-01-12] MEDS: POTASSIUM CL 10MEQ/50ML IVPB 50 ML IV SCH (04:10)
[2021-01-12] MEDS: MAGNESIUM 1 GM/100 ML IVPB 100 ML IV SCH (04:10)
[2021-01-12] MEDS: inSUlin ASPART (NovoLOG) 1 UNIT/0.01 ML (CHARGE PER UNIT) SQ SCH ×4 (05:10→23:07)
[2021-01-12] MEDS: UMECLIDINIUM BROMIDE (INCRUSE ELLIPTA) 7'S IH SCH (07:01)
--- NOTE | 2021-01-12 08:03 | Physical Therapy Progress Note ---
Therapy Progress Note Pt is currently intubated. PT will continue to monitor pt and initiate therapy when pt is more medically stable and able to actively participate in skilled therapy. REBEKAH NORIEGA PT Jan 12, 2021 08:03
--- NOTE | 2021-01-12 08:48 | Diagnostic Imaging Report ---
INDICATION: Respiratory failure Portable chest 3:39 AM ET tube projects over the trachea. There is an NG tube that appears into the stomach. There are diffuse alveolar infiltrates in the lungs. There are no effusions or pneumothoraces. IMPRESSION: Diffuse alveolar infiltrates. The lungs appear slightly worse on the left and slightly improved on the right compared to previous exam. Dictated by: Dictated on workstation # [id number]
[2021-01-12] MEDS: ENOXAPARIN 60 MG/0.6 ML (LOVENOX) SYR SC SCH ×2 (08:53→19:44)
[2021-01-12] MEDS: PANTOPRAZOLE 40 MG (PROTONIX) VIAL IV SCH (08:53)
--- NOTE | 2021-01-12 09:17 | Tele-ICU Progress Note ---
Subjective Date Seen by a Provider: Jan 12, 2021 Time Seen by a Provider: 11:42 Subjective/Events-last exam COVID PNA Remains on full vent support Now on AC 24 Vt 400 FiO2 95%, PEEP 24 Pt DNR ABG today 7.22/pCO2 up to 70/82 On IV Decadron 10, IV propofol, precedex, also on Nimbex TOF 1-2 twitches CXR today still shows diffuse opacities both lungs Getting pronned will continue Sepsis Event Evaluation Height, Weight, BMI Height: '" Weight: lbs. oz. kg; 56.00 BMI Method: Exam Exam Patient acknowledged, consented, and participated in this virtual visit which was conducted using real time audio/video Vital Signs Date Time Temp Pulse Resp B/P (MAP) Pulse Ox O2 Delivery O2 Flow Rate FiO2 01/12/21 07:09 132/69 01/12/21 07:09 76 01/12/21 07:01 75 20 94 100 01/12/21 06:00 73 20 137/72 (93) 94 Mechanical Ventilator 100.00 01/12/21 05:00 71 20 145/69 (94) 94 Mechanical Ventilator 100.00 01/12/21 04:04 71 01/12/21 04:03 140/80 01/12/21 04:00 72 16 149/73 (98) 95 Mechanical Ventilator 100.00 01/12/21 03:50 36.1 01/12/21 03:49 95 Mechanical Ventilator 100 01/12/21 03:34 158/80 01/12/21 03:00 70 16 151/59 (89) 94 Mechanical Ventilator 100.00 01/12/21 02:26 67 16 92 100 01/12/21 02:00 64 16 141/65 (90) 90 Mechanical Ventilator 100.00 01/12/21 01:00 75 01/12/21 01:00 75 16 133/55 (81) 96 Mechanical Ventilator 100.00 01/12/21 01:00 Mechanical Ventilator 100.00 01/12/21 00:57 148/52 01/12/21 00:57 148/52 01/12/21 00:00 97 Mechanical Ventilator 65 01/12/21 00:00 72 16 143/46 (78) 93 Mechanical Ventilator 50.00 01/11/21 23:43 36.0 01/11/21 23:00 72 16 135/56 (82) 94 Mechanical Ventilator 50.00 01/11/21 22:33 Mechanical Ventilator 50.00 01/11/21 22:32 131/53 01/11/21 22:00 72 16 142/58 (86) 94 Mechanical Ventilator 55.00 01/11/21 21:56 73 16 94 55 01/11/21 21:44 Mechanical Ventilator 55.00 01/11/21 21:41 147/53 01/11/21 21:41 147/53 01/11/21 21:00 77 16 148/55 (86) 97 Mechanical Ventilator 65.00 01/11/21 20:06 97 Mechanical Ventilator 65 01/11/21 20:00 74 16 142/55 (84) 95 Mechanical Ventilator 65.00 01/11/21 19:38 75 16 148/60 (89) 98 Mechanical Ventilator 65.00 01/11/21 19:28 36.2 01/11/21 19:00 74 16 139/63 (88) 97 Mechanical Ventilator 65.00 01/11/21 19:00 74 01/11/21 18:36 73 141/54 01/11/21 18:33 73 141/54 01/11/21 18:33 73 141/54 01/11/21 18:11 73 16 99 80 01/11/21 18:00 73 16 141/54 (83) 99 Mechanical Ventilator 100.00 01/11/21 17:00 73 16 128/59 (82) 99 Mechanical Ventilator 100.00 01/11/21 16:45 95 Mechanical Ventilator 100 01/11/21 16:00 36.1 01/11/21 16:00 71 16 126/52 (76) 98 Mechanical Ventilator 100.00 01/11/21 15:08 70 131/50 01/11/21 15:00 72 16 131/54 (79) 99 Mechanical Ventilator 100.00 01/11/21 14:00 71 16 126/54 (78) 100 Mechanical Ventilator 100.00 01/11/21 13:42 68 127/58 01/11/21 13:42 68 127/58 01/11/21 13:36 68 16 100 80 01/11/21 13:00 72 16 121/59 (79) 100 Mechanical Ventilator 100.00 01/11/21 12:42 74 01/11/21 12:35 94 Mechanical Ventilator 100 01/11/21 12:00 70 16 110/56 (74) 100 Mechanical Ventilator 100.00 01/11/21 11:24 35.9 01/11/21 11:00 70 16 141/67 (91) 95 Mechanical Ventilator 100.00 01/11/21 11:00 69 144/70 01/11/21 10:38 69 16 99 100 01/11/21 10:00 66 16 139/74 (95) 100 Mechanical Ventilator 100.00 I & O 01/12/21 07:00 Intake Total 340 ml Output Total 1400 ml Balance -1060 ml Height & Weight Height: '" Weight: lbs. oz. kg; 56.00 BMI Method: General Appearance: No Apparent Distress, Obese, Other (intubated and sedated) HEENT: PERRL/EOMI, Pharynx Normal Neck: Normal Inspection, Supple Respiratory: Decreased Breath Sounds, Rhonci, Other (intubated and mechanically ventilated, less air movement today) Cardiovascular: Regular Rate, Rhythm, No Murmur Capillary Refill: Less Than 3 Seconds Gastrointestinal: normal bowel sounds, non tender, soft; No distended Extremity: Normal Inspection, Non Tender, No Pedal Edema, Pedal Edema, Other (Right PICC, site still looks ok) Neurologic/Psychiatric: Other (sedated) Skin: Normal Color, Warm/Dry Results Lab Laboratory Tests 01/11/21 02:20 01/12/21 03:15 Assessment/Plan Assessment/Plan Severe ARDS picture from COVID will raise vent rate from 20 to 24, ABG one hour later continue on other meds outlook poor pt is DNR Critical Care: Critically Ill Patient Time spent with patient (mins): 30 MALACHI KRUGER MD Jan 12, 2021 09:17
[2021-01-12 14:35] LABS: ABG BASE EXCESS -0.6 MMOL/L (-2.5-2.5); ABG OXYGEN SATURATION 92 % (94-100); ABG PCO2 56 MMHG (35-45); ABG PO2 77 MMHG (79-93); ABG TCO2 27.1 MMOL/L (21.0-31.0)
[2021-01-12 14:36] LABS: ABG PH 7.28 (7.37-7.43); ALLENS TEST POSITVE
[2021-01-12 14:37] LABS: INSPIRED O2 100%; PATIENT TEMP 36.9; VENTILATOR YES
--- NOTE | 2021-01-12 16:34 | Progress Note - Hospitalist ---
Subjective HPI/CC On Admission Date Seen by Provider: Jan 12, 2021 Time Seen by Provider: 09:50 Ami Wong is a 45-year-old female with past medical history of asthma, hypertension, hyperlipidemia, GERD, super super obesity, who presented with shortness of breath. Upon my examination, she is wearing BiPAP and is unable to provide the history. She has been having fevers. She started having symptoms a few days ago. She recently tested positive for COVID-19. Her had tested positive before her. She is anxious. She is very worried and tearful about being put on the ventilator. She does agree to intubation if needed though. Subjective/Events-last exam She remains intubated and sedated. Objective Exam Vital Signs Vital Signs Date Time Temp Pulse Resp B/P (MAP) Pulse Ox O2 Delivery O2 Flow Rate FiO2 01/12/21 15:42 Mechanical Ventilator 80.00 01/12/21 15:25 82 24 120/63 (82) 96 01/12/21 14:29 90 01/12/21 12:00 37.1 Capillary Refill : Less Than 3 Seconds General Appearance: No Apparent Distress, Obese, Other (Intubated and sedated) Respiratory: No Respiratory Distress, Decreased Breath Sounds, Other (Intubated and mechanically ventilated) Cardiovascular: Regular Rate, Rhythm, No Edema, No Murmur Gastrointestinal: Normal Bowel Sounds, Soft Extremity: Normal Inspection, No Pedal Edema Neurologic/Psychiatric: Other (Sedated) Skin: Normal Color, Warm/Dry Results/Procedures Lab Laboratory Tests 01/12/21 03:15 Patient resulted labs reviewed. Imaging: Reviewed Imaging Report Assessment/Plan Assessment and Plan Assess & Plan/Chief Complaint Acute respiratory distress syndrome due to COVID-19 Endotracheally intubated Asthma Poor prognosis Covid+ 01/06 CTA with no evidence of pulmonary embolism, consistent with Covid pneumonia Intubated 01/09, requiring high FiO2 and PEEP, oxygenation improved this morning Continue proning Continue paralytics Continue Decadron s/p Actemra, decreased dose of Actemra given due to full dose being unavai labrasheed TeleICU consulted, appreciate assistance Ddimer mildly elevated, started on prophylactic Lovenox Procalcitonin normal, antibiotics not given BNP normal, hold off on diuretics Continue tube feeds HTN Asthma HLD GERD Hold home meds Super super obesity Clinically significant, no acute management needs DVT prophylaxis: Lovenox Critical Care Critically Ill Patient Diagnosis/Problems Diagnosis/Problems (1) Acute respiratory distress syndrome (ARDS) due to COVID-19 virus Status: Acute (2) Endotracheally intubated Status: Acute (3) Acute respiratory failure due to COVID-19 Status: Acute (4) Super-super obese Status: Chronic (5) Asthma Status: Chronic (6) Hypertension Status: Chronic (7) Hyperlipidemia Status: Chronic (8) GERD (gastroesophageal reflux disease) Status: Chronic TESSA MITCHELL MD Jan 12, 2021 16:34
[2021-01-12] MEDS: MICONAZOLE 2% POWDER (DESENEX AF) 90 GM TOP SCH (19:44)
[2021-01-13] VITALS (19 sets, daily range): BP systolic 106–180; BP diastolic 60–88
[2021-01-13] MEDS: CISATRACURIUM INJECTION 100 MG in NS (IVPB) 200 ML IV SCH ×4 (00:28→13:28)
[2021-01-13] MEDS: ACETAMINOPHEN 325 MG TABLET PO PRN ×2 (02:15→07:59)
[2021-01-13] MEDS: RT-ALBUTEROL HFA 8.5 GM INHALER IH SCH ×4 (03:25→13:58)
[2021-01-13 04:13] LABS: BASOPHILS % (AUTO) 0 % (0-10); EOSINOPHILS % (AUTO) 0 % (0-10); HEMATOCRIT 39 % (35-52); HEMOGLOBIN 14.1 g/dL (11.5-16.0); LYMPHOCYTES # (AUTO) 1.1 10^3/uL (1.0-4.0); LYMPHOCYTES % (AUTO) 7 % (12-44); MEAN CORPUSCULAR HEMOGLOBIN 31 pg (25-34); MEAN CORPUSCULAR HGB CONC 36 g/dL (32-36); MEAN CORPUSCULAR VOLUME 86 fL (80-99); MEAN PLATELET VOLUME 10.2 fL (9.0-12.2); MONOCYTES # (AUTO) 0.2 10^3/uL (0.0-1.0); MONOCYTES % (AUTO) 1 % (0-12); NEUTROPHILS # (AUTO) 15.2 10^3/uL (1.8-7.8); NEUTROPHILS % (AUTO) 91 % (42-75); PLATELET COUNT 382 10^3/uL (130-400); WHITE BLOOD COUNT 16.7 10^3/uL (4.3-11.0)
[2021-01-13 04:24] LABS: ALBUMIN 3.2 GM/DL (3.2-4.5); CHLORIDE 101 MMOL/L (98-107); SODIUM 136 MMOL/L (135-145)
[2021-01-13 04:25] LABS: CALCIUM 8.1 MG/DL (8.5-10.1)
[2021-01-13 04:26] LABS: GLUCOSE 129 MG/DL (70-105); TOTAL PROTEIN 11.4 GM/DL (6.4-8.2)
[2021-01-13 04:27] LABS: CARBON DIOXIDE 14 MMOL/L (21-32)
[2021-01-13 04:28] LABS: BILIRUBIN,TOTAL 0.3 MG/DL (0.1-1.0)
[2021-01-13 04:29] LABS: PHOSPHORUS 1.4 MG/DL (2.3-4.7); POTASSIUM 7.3 MMOL/L (3.6-5.0)
[2021-01-13 04:30] LABS: CREATININE SERUM 0.72 MG/DL (0.60-1.30); GFR ESTIMATED 88
[2021-01-13 04:31] LABS: BUN/CREATININE RATIO 26
[2021-01-13] MEDS: PROPOFOL DRIP (ICU) 100 ML IV SCH ×4 (04:31→11:59)
[2021-01-13 04:32] LABS: MAGNESIUM 2.5 MG/DL (1.6-2.4)
[2021-01-13 04:34] LABS: BAND NEUTROPHILS 3 %; LYMPHOCYTES % (MANUAL) 4 %; MONOCYTES % (MANUAL) 4 %; NEUTROPHILS % (MANUAL) 89 %; RBC MORPH NORMAL
[2021-01-13] MEDS ORDERED: DEXTROSE 50% 50 ML (IMS) SYR IV ONE (05:00)
[2021-01-13] MEDS ORDERED: inSUlin ASPART (NovoLOG) 1 UNIT/0.01 ML (CHARGE PER UNIT) IV ONE (05:00)
[2021-01-13] MEDS ORDERED: CALCIUM GLUC. 10% 4.65 MEQ/10 ML VIAL IV ONE (05:00)
[2021-01-13] MEDS ORDERED: SODIUM BICARB 8.4% 50 MEQ/50 ML (ABBOTT) SYR IV ONE (05:15)
[2021-01-13 05:31] LABS: ALKALINE PHOSPHATASE < 50 U/L (40-136)
[2021-01-13 05:36] LABS: ALANINE AMINOTRANSFERASE 128 U/L (0-55)
[2021-01-13] MEDS: KCL 20 MEQ TAB (K-DUR) PO SCH (06:01)
[2021-01-13] MEDS: POTASSIUM CL 10MEQ/50ML IVPB 50 ML IV SCH (06:01)
[2021-01-13] MEDS: inSUlin ASPART (NovoLOG) 1 UNIT/0.01 ML (CHARGE PER UNIT) SQ SCH ×2 (06:02→11:58)
[2021-01-13] MEDS: MAGNESIUM 1 GM/100 ML IVPB 100 ML IV SCH (06:37)
[2021-01-13 07:04] LABS: CALCIUM 8.2 MG/DL (8.5-10.1); CREATININE SERUM 0.68 MG/DL (0.60-1.30)
[2021-01-13 07:05] LABS: POTASSIUM 6.4 MMOL/L (3.6-5.0)
--- NOTE | 2021-01-13 07:05 | Occ Therapy Progress Note ---
Therapy Progress Note Pt is currently intubated. OT will continue to monitor pt and initiate therapy when pt is more medically stable and able to actively participate in skilled therapy. SONY OLEA Jan 13, 2021 07:05
--- NOTE | 2021-01-13 07:50 | Physical Therapy Progress Note ---
Therapy Progress Note Pt is currently intubated. PT will continue to monitor pt and initiate therapy when pt is more medically stable and able to actively participate in skilled therapy. REBEKAH NORIEGA PT Jan 13, 2021 07:50
[2021-01-13] MEDS: DexMEDEtomidine 250 ML DRIP 250 ML IV SCH (07:53)
--- NOTE | 2021-01-13 07:53 | Diagnostic Imaging Report ---
INDICATION: Pneumonia. Hypoxia. COMPARISON: 01/12/2021 FINDINGS: Single frontal radiographic view of the chest was obtained and demonstrates indwelling endotracheal tube with tip at the clavicular heads. Gastric tube is heavily obscured. Lungs continue to show diffuse bilateral infiltrates. There has been significant interval progression with more confluent airspace disease throughout the left lung as well as within the right lung base. No large effusion or pneumothorax is seen. Cardiac silhouette is obscured. No gross acute osseous abnormalities are identified. IMPRESSION: 1. Interval progression of bilateral infiltrates. Continued follow-up is recommended. Dictated by: Dictated on workstation # [id number]
[2021-01-13 08:04] LABS: ABG BASE EXCESS 0.9 MMOL/L (-2.5-2.5); ABG OXYGEN SATURATION 85 % (94-100); ABG PCO2 66 MMHG (35-45); ABG PO2 70 MMHG (79-93); ABG TCO2 29.1 MMOL/L (21.0-31.0)
[2021-01-13] MEDS: ENOXAPARIN 60 MG/0.6 ML (LOVENOX) SYR SC SCH (08:09)
[2021-01-13] MEDS: MICONAZOLE 2% POWDER (DESENEX AF) 90 GM TOP SCH (08:09)
[2021-01-13] MEDS: PANTOPRAZOLE 40 MG (PROTONIX) VIAL IV SCH (08:09)
[2021-01-13 08:12] LABS: ABG PH 7.25 (7.37-7.43); ALLENS TEST YES-POS; INSPIRED O2 100%
[2021-01-13 08:13] LABS: PATIENT TEMP 38.1; VENTILATOR YES
--- NOTE | 2021-01-13 10:00 | Tele-ICU Progress Note ---
Subjective Date Seen by a Provider: Jan 13, 2021 Time Seen by a Provider: 09:45 Subjective/Events-last exam Patient present for this virtual visit which was conducted using real time audio/video. Thank you for asking us to see this patient for respiratory insufficiency and distress due to Covid pna.. HPC: Recent events: Pt now DNR. Off pressors. Desaturated w supination. Family hopeful for a miracle. ROS: limited by patient's clinical condition. PE: Proned, morbidly obese. VSS O2 sat 93% on 100%/+22 HEENT: No obvious masses, adenopathy or JVD. Chest:Diminished on auscultation. CV: RRR S1 S2 No murmur or added sounds. Abd: Non-tender. Bowel sounds Y. : Unremarkable. [place] Y. [employer]/psychiatric: Sedated. No obvious focal findings. Extremities: trace edema. Capillary refill < 3 seconds. Skin: unremarkable. Results: K decreased from 7.3 to 6.4. CXR: B imfilts. A/P: Available chart/ vitals / labs / Images reviewed Respiratory: Continue present management with ventilator. Maintain prone position. Cont PPI, Dex., Lovenox. Critical Care: critically ill patient. Discussed with BELÉN Gudino. Asked RN to reach out to eICU if any questions or concerns later. Time spent with patient/coordination of care with other health professionals (mins):15 Sepsis Event Evaluation Height, Weight, BMI Height: '" Weight: lbs. oz. kg; 56.00 BMI Method: Exam Exam Patient acknowledged, consented, and participated in this virtual visit which was conducted using real time audio/video Vital Signs Date Time Temp Pulse Resp B/P (MAP) Pulse Ox O2 Delivery O2 Flow Rate FiO2 01/13/21 09:00 38.0 110 24 143/72 (95) 88 Mechanical Ventilator 95.00 01/13/21 08:10 112 179/89 01/13/21 08:10 112 179/89 01/13/21 08:00 38.1 111 24 173/73 (112) 88 Mechanical Ventilator 95.00 01/13/21 07:59 38.1 01/13/21 07:53 112 179/89 01/13/21 07:25 109 24 88 100 01/13/21 07:00 38.1 107 24 180/78 (108) 89 Mechanical Ventilator 95.00 01/13/21 07:00 106 01/13/21 06:00 38.1 117 24 176/74 (108) 91 Mechanical Ventilator 95.00 01/13/21 05:00 38.1 105 24 177/82 (113) 90 Mechanical Ventilator 95.00 01/13/21 04:31 75 24 76 100 01/13/21 04:31 98 180/95 01/13/21 04:00 93 Mechanical Ventilator 100 01/13/21 04:00 38.2 101 24 172/87 (115) 90 Mechanical Ventilator 95.00 01/13/21 03:00 38.1 95 24 106/84 (91) 88 Mechanical Ventilator 95.00 01/13/21 02:45 38.2 01/13/21 02:15 37.9 01/13/21 02:00 37.9 91 24 164/74 (104) 90 Mechanical Ventilator 95.00 01/13/21 01:00 90 01/13/21 01:00 37.6 90 24 169/86 (113) 91 Mechanical Ventilator 95.00 01/13/21 00:00 37.4 90 24 170/76 (107) 92 Mechanical Ventilator 95.00 01/12/21 23:59 93 Mechanical Ventilator 90 01/12/21 23:00 37.4 82 24 164/74 (104) 91 Mechanical Ventilator 95.00 01/12/21 22:14 75 24 90 90 01/12/21 22:00 37.4 72 24 142/60 (87) 91 Mechanical Ventilator 95.00 01/12/21 21:00 37.3 77 24 150/62 (91) 93 Mechanical Ventilator 95.00 01/12/21 20:00 93 Mechanical Ventilator 90 01/12/21 20:00 37.1 76 24 166/76 (106) 91 Mechanical Ventilator 95.00 01/12/21 19:30 84 24 97 90 01/12/21 19:00 37.0 72 24 164/67 (99) 91 Mechanical Ventilator 95.00 01/12/21 19:00 72 01/12/21 18:00 84 24 156/40 (78) 92 Mechanical Ventilator 80.00 01/12/21 17:00 87 24 145/32 (69) 94 Mechanical Ventilator 80.00 01/12/21 16:15 94 Mechanical Ventilator 90 01/12/21 16:00 84 24 140/30 (66) 93 Mechanical Ventilator 80.00 01/12/21 15:42 Mechanical Ventilator 80.00 01/12/21 15:25 82 24 120/63 (82) 96 Mechanical Ventilator 100.00 01/12/21 15:00 85 24 147/54 (85) 94 Mechanical Ventilator 100.00 01/12/21 14:29 84 24 97 90 01/12/21 14:00 73 25 110/62 (78) 100 Mechanical Ventilator 100.00 01/12/21 14:00 66 94/45 01/12/21 13:00 66 24 94/45 (61) 96 Mechanical Ventilator 100.00 01/12/21 12:44 64 01/12/21 12:35 94 Mechanical Ventilator 100 01/12/21 12:00 37.1 01/12/21 12:00 61 14 82/43 (56) 90 Mechanical Ventilator 100.00 01/12/21 11:37 76 24 84 100 01/12/21 11:00 76 20 147/55 (85) 90 Mechanical Ventilator 100.00 01/12/21 10:04 80 01/12/21 10:03 82 01/12/21 10:02 82 01/12/21 10:00 80 20 134/72 (92) 92 Mechanical Ventilator 100.00 I & O 01/13/21 07:00 Intake Total 2410 ml Output Total 2050 ml Balance 360 ml Height & Weight Height: '" Weight: lbs. oz. kg; 56.00 BMI Method: General Appearance: No Apparent Distress, Obese, Other (Intubated and sedated) HEENT: PERRL/EOMI, Pharynx Normal Neck: Normal Inspection, Supple Respiratory: No Respiratory Distress, Decreased Breath Sounds, Other (Intubated and mechanically ventilated) Cardiovascular: Regular Rate, Rhythm, No Edema, No Murmur Capillary Refill: Less Than 3 Seconds Gastrointestinal: normal bowel sounds, non tender, soft; No distended Extremity: Normal Inspection, No Pedal Edema Neurologic/Psychiatric: Other (Sedated) Skin: Normal Color, Warm/Dry Results Lab Laboratory Tests 01/12/21 03:15 01/13/21 04:00 01/13/21 06:30 Assessment/Plan Assessment/Plan See free text. Critical Care: Ventilator Management KRISTEL GLASS MD Jan 13, 2021 10:00
--- NOTE | 2021-01-13 13:56 | Progress Note - Hospitalist ---
Subjective HPI/CC On Admission Date Seen by Provider: Jan 13, 2021 Time Seen by Provider: 10:25 Ami Wong is a 45-year-old female with past medical history of asthma, hypertension, hyperlipidemia, GERD, super super obesity, who presented with shortness of breath. Upon my examination, she is wearing BiPAP and is unable to provide the history. She has been having fevers. She started having symptoms a few days ago. She recently tested positive for COVID-19. Her had tested positive before her. She is anxious. She is very worried and tearful about being put on the ventilator. She does agree to intubation if needed though. Subjective/Events-last exam She remains intubated and sedated. Her was called and updated on her worsening condition. Objective Exam Vital Signs Vital Signs Date Time Temp Pulse Resp B/P (MAP) Pulse Ox O2 Delivery O2 Flow Rate FiO2 01/13/21 13:00 101 24 155/75 (101) 92 Mechanical Ventilator 95.00 01/13/21 12:35 100 01/13/21 12:00 37.7 Capillary Refill : Less Than 3 Seconds General Appearance: No Apparent Distress, Obese, Other (Intubated, sedated, and paralyzed) Respiratory: Lungs Clear, Normal Breath Sounds, No Respiratory Distress Cardiovascular: Regular Rate, Rhythm, No Edema, No Murmur Gastrointestinal: Normal Bowel Sounds, Non Tender, Soft Extremity: Normal Inspection, No Pedal Edema Neurologic/Psychiatric: Other (sedated) Skin: Normal Color, Warm/Dry Results/Procedures Lab Laboratory Tests 01/13/21 04:00 01/13/21 06:30 Patient resulted labs reviewed. Imaging: Reviewed Imaging Report Assessment/Plan Assessment and Plan Assess & Plan/Chief Complaint Acute respiratory distress syndrome due to COVID-19 Endotracheally intubated Asthma Poor prognosis Goals of care discussion/counseling Covid+ 01/06 CTA with no evidence of pulmonary embolism, consistent with Covid pneumonia Intubated 01/09, requiring high FiO2 and PEEP, oxygenation improved this morning TeleICU consulted, appreciate assistance Ddimer mildly elevated, continue prophylactic Lovenox Procalcitonin normal, antibiotics not given BNP normal, hold off on diuretics Continue tube feeds Continue paralytics Continue Decadron s/p Actemra, decreased dose of Actemra given due to full dose being unavailable Currently proning, could not tolerate return to supine Attempt to return to supine position Family notified, poor prognosis Palliative care following HTN Asthma HLD GERD Hold home meds Super super obesity Clinically significant, no acute management needs DVT prophylaxis: Lovenox Critical Care Ventilator Management Diagnosis/Problems Diagnosis/Problems (1) Acute respiratory distress syndrome (ARDS) due to COVID-19 virus Status: Acute (2) Endotracheally intubated Status: Acute (3) Acute respiratory failure due to COVID-19 Status: Acute (4) Super-super obese Status: Chronic (5) Asthma Status: Chronic (6) Hypertension Status: Chronic (7) Hyperlipidemia Status: Chronic (8) GERD (gastroesophageal reflux disease) Status: Chronic TESSA MITCHELL MD Jan 13, 2021 13:56
[2021-01-13] MEDS ORDERED: SODIUM PHOSPHATE INJ 30 MM in NS (IVPB) 250 ML INJ ONE (14:00)
[2021-01-13] MEDS ORDERED: LORazepam INJ 2 MG/ML (ATIVAN) VIAL IVP PRN (16:00)
[2021-01-13] MEDS ORDERED: morphine INJ 4 MG/ML 1 ML (VIAL/SYRINGE) IVP PRN (16:00)
--- NOTE | 2021-01-13 17:43 | Discharge Summary ---
Discharge Summary Hospital Course Problems/Dx: (1) Acute respiratory distress syndrome (ARDS) due to COVID-19 virus Status: Acute (2) Endotracheally intubated Status: Acute (3) Acute respiratory failure due to COVID-19 Status: Acute (4) Super-super obese Status: Chronic (5) Asthma Status: Chronic (6) Hypertension Status: Chronic (7) Hyperlipidemia Status: Chronic (8) GERD (gastroesophageal reflux disease) Status: Chronic Hospital Course Date of Admission: Jan 08, 2021 at 20:05 Admission Diagnosis : Acute respiratory failure due to COVID-19 Family Physician/Provider: Jennifer Rashid Physician Date of Discharge: 01/13/21 Discharge Diagnosis: Acute respiratory distress syndrome due to COVID-19 Hospital Course: Ami Wong was a 45-year-old female with past medical history of hypertension, hyperlipidemia, asthma, super super obesity, who was admitted with acute respiratory failure due to COVID-19. She was initially admitted on nasal cannula, but rapidly progressed to requiring BiPAP. She continued to decline a nd required endotracheal intubation. She was treated with steroids and Actemra. She continued to remain hypoxic despite maximal ventilator support. She was started on paralytics. She continued to worsen and her oxygen saturations were unable to be maintained at a normal level despite maximal support. Her case was discussed with [facility] in an attempt to try ECMO, but they were not accepting transfers due to no available beds. Her was informed of her worsening condition and decision was made to transition to comfort measures only. She subsequently passed that 1603 on 01/13/2021. Labs and Pending Lab Test: Laboratory Tests 01/12/21 22:30: Glucometer 133H 01/13/21 04:00: White Blood Count 16.7H, Red Blood Count 4.50, Hemoglobin 14.1, Hematocrit 39, Mean Corpuscular Volume 86, Mean Corpuscular Hemoglobin 31, Mean Corpuscular Hemoglobin Concent 36, Red Cell Distribution Width 15.1H, Platelet Count 382, Mean Platelet Volume 10.2, Immature Granulocyte % (Auto) 1, Neutrophils (%) (Auto) 91H, Lymphocytes (%) (Auto) 7L, Monocytes (%) (Auto) 1, Eosinophils (%) (Auto) 0, Basophils (%) (Auto) 0, Neutrophils # (Auto) 15.2H, Lymphocytes # (Auto) 1.1, Monocytes # (Auto) 0.2, Eosinophils # (Auto) 0.0, Basophils # (Auto) 0.0, Immature Granulocyte # (Auto) 0.1, Neutrophils % (Manual) 89, Lymphocytes % (Manual) 4, Monocytes % (Manual) 4, Band Neutrophils 3, Blood Morphology Comment NORMAL, Sodium Level 136, Potassium Level 7.3*H, Chloride Level 101, Carbon Dioxide Level 14L, Anion Gap 21H, Blood Urea Nitrogen 19H, Creatinine 0.72, Estimat Glomerular Filtration Rate 88, BUN/Creatinine Ratio 26, Glucose Level 129H, Calcium Level 8.1L, Corrected Calcium 8.7, Phosphorus Level 1.4L, Magnesium Level 2.5H, Total Bilirubin 0.3, Aspartate Amino Transf (AST/SGOT) 175H, Alanine Aminotransferase (ALT/SGPT) 128H, Alkaline Phosphatase < 50, Total Protein 11.4H, Albumin 3.2 01/13/21 06:30: Sodium Level 134L, Potassium Level 6.4H, Chloride Level 102, Carbon Dioxide Level 16L, Anion Gap 16H, Blood Urea Nitrogen 17, Creatinine 0.68, Estimat Glomerular Filtration Rate 94, BUN/Creatinine Ratio 25, Glucose Level 159H, Calcium Level 8.2L 01/13/21 07:56: Blood Gas Puncture Site LT RAD, Blood Gas Patient Temperature 38.1, Arterial Blood pH 7.25*L, Arterial Blood Partial Pressure CO2 66H, Arterial Blood Partial Pressure O2 70L, Arterial Blood HCO3 27, Arterial Blood Total CO2 29.1, Arterial Blood Oxygen Saturation 85L, Arterial Blood Base Excess 0.9, Mohamud Test YES-POS, Blood Gas Ventilator Setting YES, Blood Gas Inspired Oxygen 100% 01/13/21 11:36: Glucometer 145H Microbiology 01/09/21 Gram Stain - Final, Complete 01/09/21 Sputum Culture - Final, Complete Usual upper respiratory sara 01/08/21 Blood Culture - Preliminary, Resulted No growth Home Meds Active Albuterol Sulfate 2.5 Mg/3 Ml Vial.neb 2.5 Mg INH Q4H PRN 15 Days Azithromycin 500 Mg Tablet 500 Mg PO DAILY 5 Days Prednisone 20 Mg Tab 40 Mg PO DAILY 5 Days Reported Dulera 200 Mcg/5 Mcg Inhaler (Mometasone/Formoterol) 13 Gm Hfa.aer.ad 2 Puff INH BID Ventolin Hfa (Albuterol Sulfate) 18 Gm Hfa.aer.ad 2 Puff INH Q4H PRN Paroxetine HCl 30 Mg Tablet 60 Mg PO DAILY Gemfibrozil 600 Mg Tablet 600 Mg PO BID Propranolol HCl 40 Mg Tablet 40 Mg PO BID Lisinopril-Hctz 20-25 mg Tab (Lisinopril/Hydrochlorothiazide) 1 Each Tablet 1 Tab PO DAILY Quetiapine Fumarate 50 Mg Tablet 50 Mg PO HS Montelukast Sodium 10 Mg Tablet 10 Mg PO HS Pantoprazole Sodium 40 Mg Tablet.dr 40 Mg PO HS Assessment/Pt Instructions Patient Discharge Planning: <30 minutes discharge planning Discharge Physical Examination Vital Signs Vital Signs Date Time Temp Pulse Resp B/P (MAP) Pulse Ox O2 Delivery O2 Flow Rate FiO2 01/13/21 15:37 36.6 01/13/21 15:00 112 14 81 Mechanical Ventilator 95.00 01/13/21 14:00 159/74 (102) 01/13/21 13:58 100 Allergies: Coded Allergies: torsemide (Verified Allergy, Unknown, Rash, 01/06/21) Discharge Summary Date of Admission Jan 08, 2021 at 20:05 Date of Discharge Discharge Date: Jan 13, 2021 Discharge Time: 16:03 Admission Diagnosis Acute respiratory failure due to COVID-19 Comfort Measures/ Date of : Jan 13, 2021 Time of : 16:03 Discharge Diagnosis Acute respiratory distress syndrome due to COVID-19 (1) Acute respiratory distress syndrome (ARDS) due to COVID-19 virus Status: Acute (2) Endotracheally intubated Status: Acute (3) Acute respiratory failure due to COVID-19 Status: Acute (4) Super-super obese Status: Chronic (5) Asthma Status: Chronic (6) Hypertension Status: Chronic (7) Hyperlipidemia Status: Chronic (8) GERD (gastroesophageal reflux disease) Status: Chronic TESSA MITCHELL MD Jan 13, 2021 17:42
[2021-01-13] MEDS ORDERED: CISATRACURIUM DRIP 250 ML IV SCH (18:00)
== END 2021-01-13 16:03 | disposition expired | DRG 208 ==
LOC: EDUNIT# 14:12 → ER FS 14:13 → 4TH 20:05 → ICU 01-09 08:00
PROVIDERS: ADMIT Family Medicine; ATTEND Internal Medicine
PROC: 8E0ZXY6 Isolation (ICD-10-PCS; 2021-01-08)
PROC: 5A09357 Assistance with Respiratory Ventilation, Less than 24 Consecutive Hours, Continuous Positive Airway Pressure (ICD-10-PCS; principal; 2021-01-09)
PROC: 5A1945Z Respiratory Ventilation, 24-96 Consecutive Hours (ICD-10-PCS; 2021-01-09)
PROC: 0BH17EZ Insertion of Endotracheal Airway into Trachea, Via Natural or Artificial Opening (ICD-10-PCS; 2021-01-09)
PROC: 06HY33Z Insertion of Infusion Device into Lower Vein, Percutaneous Approach (ICD-10-PCS; 2021-01-09)
DX: U07.1 COVID-19 (principal); J80 Acute respiratory distress syndrome; J12.82 Pneumonia due to coronavirus disease 2019; Z68.44 Body mass index [BMI] 60.0-69.9, adult; Z66 Do not resuscitate; Z51.5 Encounter for palliative care; F41.9 Anxiety disorder, unspecified; I10 Essential (primary) hypertension; E78.00 Pure hypercholesterolemia, unspecified; F32.9 Major depressive disorder, single episode, unspecified; R73.03 Prediabetes; E66.01 Morbid (severe) obesity due to excess calories; J45.909 Unspecified asthma, uncomplicated; E78.5 Hyperlipidemia, unspecified; Z79.899 Other long term (current) drug therapy; Z73.0 Burn-out
CPT/HCPCS: 36410; 36415; 36569; 36600; 71045; 71275; 76937; 80048; 80053; 81000; 82805; 82947; 83605; 83735; 83880; 84100; 84145; 84484; 85007; 85025; 85027; 85379; 85610; 85730; 86141; 87040; 87070; 87205; 93005; 93041; 94002; 94003; 94640; 94664; 94760; 94799